=== PATIENT | female | born 1960 | race African-American/Black ===

== ENCOUNTER 2019-03-11 13:30 | Emergency (ER) | payer OTHER ==
--- OUTSIDE RECORDS SUMMARY | 2019-03-11 13:37 | XMS REPORT ---
:1960 [facility] [address] [place] [address] [place] [id number] Care Team Providers Name Role Phone Unavailable Unavailable Unavailable Problems This patient has no known problems. Allergies, Adverse Reactions, Alerts This patient has no known allergies or adverse reactions. Medications This patient has no known medications.
--- NOTE | 2019-03-11 15:06 | ER ---
Nurse's Notes [facility] Name: Katherin Bhakta Age: 58 yrs Sex: Female : 1960 Arrival Date: 03/11/2019 Time: 13:34 Bed 17 Private MD: Diagnosis: Low back pain;Muscle spasm of back Presentation: 03/11 13:49 Presenting complaint: Patient states: "I tripped and fell today and my back is aa5 hurting". pt c/o mid-low back pain. Care prior to arrival: None. Mechanism of Injury: Fall from standing position. Trauma event details: Injury occurred in the [facility], Injury occurred: March 11, 2019. 13:49 Acuity: RIDDHI 4 aa5 13:49 Method Of Arrival: Ambulatory aa5 13:59 Transition of care: patient was not received from another setting of care. Onset of tw2 symptoms was March 11, 2019. Risk Assessment: Do you want to hurt yourself or someone else? Patient reports no desire to harm self or others. Initial Sepsis Screen: Does the patient meet any 2 criteria? No. Patient's initial sepsis screen is negative. Does the patient have a suspected source of infection? No. Patient's initial sepsis screen is negative. Trauma Activation: Not Applicable Physician: ED Physician; Name: ; Notified At: ; Arrived At: Physician: General Surgeon; Name: ; Notified At: ; Arrived At: Physician: Radiology; Name: ; Notified At: ; Arrived At: Physician: Respiratory; Name: ; Notified At: ; Arrived At: Physician: Lab; Name: ; Notified At: ; Arrived At: Historical: - Allergies: 13:50 No Known Allergies; aa5 - PMHx: 13:50 Hypertension; aa5 - PSHx: 13:49 Appendectomy; aa5 - Immunization history:: Flu vaccine is not up to date. - Social history:: Smoking status: Patient uses tobacco products, smokes one-half pack cigarettes per day. - Ebola Screening: : No symptoms or risks identified at this time. Screenin:59 Abuse screen: Denies threats or abuse. Nutritional screening: No deficits noted. tw2 Tuberculosis screening: No symptoms or risk factors identified. Fall Risk None identified. Assessment: 14:00 General: Appears in no apparent distress. slender, well groomed, Behavior is calm, tw2 cooperative, appropriate for age. Pain: Complains of pain in lumbar area, left low back and right low back. Neuro: Level of Consciousness is awake, alert, obeys commands, Oriented to person, place, time, situation. Cardiovascular: Heart tones S1 S2 Patient's skin is warm and dry. Respiratory: Airway is patent Respiratory effort is even, unlabored, Respiratory pattern is regular, symmetrical, Breath sounds are clear bilaterally. GI: No signs and/or symptoms were reported involving the gastrointestinal system. : No signs and/or symptoms were reported regarding the genitourinary system. EENT: No signs and/or symptoms were reported regarding the EENT system. Derm: No signs and/or symptoms reported regarding the dermatologic system. Musculoskeletal: Circulation, motion, and sensation intact. Range of motion: intact in all extremities, Reports pain in lumbar area, left low back and right low back since "earlier today when i was moving mulch i tripped and fell from standing, im just real sore". 15:12 Reassessment: Patient appears in no apparent distress at this time. No changes from tw2 previously documented assessment. Patient and/or family updated on plan of care and expected duration. Pain level reassessed. Patient is alert, oriented x 3, equal unlabored respirations, skin warm/dry/pink. Vital Signs: 13:51 BP 116 / 75; Pulse 72; Resp 16 S; Temp 99.0(TE); Pulse Ox 100% on R/A; Weight 63.5 kg aa5 (R); Height 5 ft. 4 in. (162.56 cm) (R); Pain 9/10; 15:06 BP 124 / 67; Pulse 59; Resp 18; Temp 97.8(O); Pulse Ox 99% ; mh5 13:51 Body Mass Index 24.03 (63.50 kg, 162.56 cm) aa5 ED Course: 13:34 Patient arrived in ED. mr 13:49 Triage completed. aa5 13:50 Arm band placed on. aa5 13:52 Placed in gown. Bed in low position. Pulse ox on. NIBP on. tw2 13:58 Nichole Sinha RN is Primary Nurse. tw2 14:05 Naveed Jean PA is PHCP. jr8 14:05 Malinda Garcia MD is Attending Physician. jr8 14:51 XRAY Lumbar Spine (3 Views) In Process Unspecified. EDMS 14:51 X-ray completed. Patient tolerated procedure well. Patient moved to radiology via ml wheelchair. Patient moved back from radiology. 15:12 No provider procedures requiring assistance completed. Patient did not have IV access tw2 during this emergency room visit. Administered Medications: No medications were administered Outcome: 15:06 Discharge ordered by . jr8 15:12 Discharged to home ambulatory, with family. tw2 15:12 Condition: stable 15:12 Discharge instructions given to patient, family, Instructed on discharge instructions, follow up and referral plans. no drinking with medication, no driving heavy equipment, medication usage, Demonstrated understanding of instructions, follow-up care, medications, Prescriptions given X 3. 15:13 Patient left the ED. tw2 Signatures: Dispatcher [employer] [facility] PartidaBlessing Harinder, CrisTania Morales RN RN aa5 Naveed Jean PA PA jr8 Nichole Sinha RN RN tw2 Brittaney Orellana [facility]
--- NOTE | 2019-03-11 15:07 | EDPHYS ---
Physician Documentation [facility] Name: Katherin Bhakta Age: 58 yrs Sex: Female : 1960 Arrival Date: 03/11/2019 Time: 13:34 Bed 17 Private MD: ED Physician Malinda Garcia HPI: 03/11 14:52 This 58 yrs old Black Female presents to ER via Ambulatory with complaints of Fall jr8 Injury, Back Pain. 14:52 Details of fall: The patient fell from an upright position, while standing. Onset: The jr8 symptoms/episode began/occurred acutely, today. 14:52 Associated injuries: The patient sustained injury to the low back, pain. Severity of jr8 symptoms: At their worst the symptoms were moderate, in the emergency department the symptoms are unchanged. The patient has not experienced similar symptoms in the past. The patient has not recently seen a physician. Fell on back left side while doing yard work. Pain with decreased ROM since incident. Denies any other trauma . Historical: - Allergies: 13:50 No Known Allergies; aa5 - PMHx: 13:50 Hypertension; aa5 - PSHx: 13:49 Appendectomy; aa5 - Immunization history:: Flu vaccine is not up to date. - Social history:: Smoking status: Patient uses tobacco products, smokes one-half pack cigarettes per day. - Ebola Screening: : No symptoms or risks identified at this time. ROS: 14:52 Eyes: Negative for injury, pain, redness, and discharge, ENT: Negative for injury, jr8 pain, and discharge, Neck: Negative for injury, pain, and swelling, Cardiovascular: Negative for chest pain, palpitations, and edema, Respiratory: Negative for shortness of breath, cough, wheezing, and pleuritic chest pain, Abdomen/GI: Negative for abdominal pain, nausea, vomiting, diarrhea, and constipation, MS/Extremity: Negative for injury and deformity, Skin: Negative for injury, rash, and discoloration, Neuro: Negative for headache, weakness, numbness, tingling, and seizure. 14:52 Back: Positive for pain at rest, pain with movement, of the lumbar area, left low back and right low back. Exam: 14:52 Eyes: Pupils equal round and reactive to light, extra-ocular motions intact. Lids and jr8 lashes normal. Conjunctiva and sclera are non-icteric and not injected. Cornea within normal limits. Periorbital areas with no swelling, redness, or edema. ENT: Nares patent. No nasal discharge, no septal abnormalities noted. Tympanic membranes are normal and external auditory canals are clear. Oropharynx with no redness, swelling, or masses, exudates, or evidence of obstruction, uvula midline. Mucous membranes moist. Neck: Trachea midline, no thyromegaly or masses palpated, and no cervical lymphadenopathy. Supple, full range of motion without nuchal rigidity, or vertebral point tenderness. No Meningismus. Cardiovascular: Regular rate and rhythm with a normal S1 and S2. No gallops, murmurs, or rubs. Normal PMI, no JVD. No pulse deficits. Respiratory: Lungs have equal breath sounds bilaterally, clear to auscultation and percussion. No rales, rhonchi or wheezes noted. No increased work of breathing, no retractions or nasal flaring. Abdomen/GI: Soft, non-tender, with normal bowel sounds. No distension or tympany. No guarding or rebound. No evidence of tenderness throughout. Skin: Warm, dry with normal turgor. Normal color with no rashes, no lesions, and no evidence of cellulitis. MS/ Extremity: Pulses equal, no cyanosis. Neurovascular intact. Full, normal range of motion. Neuro: Awake and alert, GCS 15, oriented to person, place, time, and situation. Cranial nerves II-XII grossly intact. Motor strength 5/5 in all extremities. Sensory grossly intact. Cerebellar exam normal. Normal gait. 14:52 Back: pain, that is moderate, of the left low back and right low back, ROM is painful, with flexion, normal spinal alignment noted, CVA tenderness, is absent, vertebral tenderness, is not appreciated, muscle spasm, is appreciated in the left low back, left mid back, right mid back and right low back. Vital Signs: 13:51 BP 116 / 75; Pulse 72; Resp 16 S; Temp 99.0(TE); Pulse Ox 100% on R/A; Weight 63.5 kg aa5 (R); Height 5 ft. 4 in. (162.56 cm) (R); Pain 9/10; 15:06 BP 124 / 67; Pulse 59; Resp 18; Temp 97.8(O); Pulse Ox 99% ; mh5 13:51 Body Mass Index 24.03 (63.50 kg, 162.56 cm) aa5 MDM: 14:10 Patient medically screened. jr8 15:04 Data reviewed: vital signs, nurses notes, radiologic studies, plain films. Data jr8 interpreted: Pulse oximetry: on room air is 100 %. Interpretation: normal. Test interpretation: by ED physician or midlevel provider: plain radiologic studies, Wedge compression fracture of L1 noted. . Counseling: I had a detailed discussion with the patient and/or guardian regarding: the historical points, exam findings, and any diagnostic results supporting the discharge/admit diagnosis, radiology results, the need for outpatient follow up, a orthopedic surgeon, to return to the emergency department if symptoms worsen or persist or if there are any questions or concerns that arise at home. ED course: Discussed with patient that she has what appears to be an old wedge compression fracture of L1. No other acute findings noted. Based on mechanism of injury less likely to be new fracture. Recommend ortho spine f/u. If radiology says otherwise will call back. In the mean time will help with pain . 03/11 14:26 Order name: XRAY Lumbar Spine (3 Views) jr8 Administered Medications: No medications were administered Disposition: 15:15 Co-signature as Attending Physician, Malinda Garcia MD. ma2 Disposition: 03/11/19 15:06 Discharged to Home. Impression: Low back pain, Muscle spasm of back. - Condition is Stable. - Discharge Instructions: Back Pain, Adult, Muscle Cramps and Spasms, Musculoskeletal Pain, Back Exercises, [id number], Heat Therapy. - Prescriptions for Ibuprofen 800 mg Oral Tablet - take 1 tablet by ORAL route every 12 hours As needed take with food; 20 tablet. Zanaflex 4 mg Oral Tablet - take 1 tablet by ORAL route every 8 hours As needed; 20 tablet. Tramadol 50 mg Oral Tablet - take 1 tablet by ORAL route every 8 hours as needed; 12 tablet. - Medication Reconciliation Form, Thank You Letter, Antibiotic Education, Prescription Opioid Use form. - Follow up: Private Physician; When: 5 - 6 days; Reason: Recheck today's complaints, Continuance of care, Re-evaluation by your physician. - Problem is new. - Symptoms have improved. Signatures: Dispatcher [facility] Tania Collazo, RN RN aa5 Naveed Jean PA PA jr8 Nichole Sinha RN RN tw2 Malinda Garcia MD MD ma2 Corrections: (The following items were deleted from the chart) 14:53 14:52 Onset: The symptoms/episode began/occurred acutely, 2 day(s) ago, jr8 jr8 15:13 15:06 03/11/2019 15:06 Discharged to Home. Impression: Low back pain; Muscle spasm of tw2 back. Condition is Stable. Forms are Medication Reconciliation Form, Thank You Letter, Antibiotic Education, Prescription Opioid Use. Follow up: Private Physician; When: 5 - 6 days; Reason: Recheck today's complaints, Continuance of care, Re-evaluation by your physician. Problem is new. Symptoms have improved. jr8
--- NOTE | 2019-03-11 15:14 | RAD REPORT ---
EXAM DESCRIPTION: RAD - Lumbar Spine 3 Views - 03/11/2019 2:52 pm CLINICAL HISTORY: Back pain FINDINGS: The alignment of the lumbar spine is satisfactory. Mild compression fracture involves the L1 vertebral body which has developed since 2011 Osteoporosis 25 millimeter calcification within the pelvis may represent a calcified uterine fibroid. Follow-up x- ray in 3 months recommended to assess stability
[2019-03-11 15:18] VITALS: BP 124/67; TEMP 97.8; O2SAT 99
== END 2019-03-11 15:13 | disposition home or self-care (01) ==
LOC: ER 13:30
DX: M62.830 Muscle spasm of back (principal); W18.30XA Fall on same level, unspecified, initial encounter; Y93.89 Activity, other specified; Y92.9 Unspecified place or not applicable; I10 Essential (primary) hypertension; F17.210 Nicotine dependence, cigarettes, uncomplicated
CPT/HCPCS: 72100

== ENCOUNTER 2020-01-17 19:44 | Emergency (ER) | payer OTHER ==
--- OUTSIDE RECORDS SUMMARY | 2020-01-17 19:47 | XMS REPORT | Summary of Care ---
:1960 Author Organization [facility] - [facility] Address [address] [place] [id number] Care Team Providers Name Role Phone Lukas Newell MD Primary Care Provider Reason for Referral (Routine) Status Reason Specialty Diagnoses / Referred By Referred To Procedures Contact Contact New Request Cardiology Diagnoses Essential hypertension Elevated troponin Lukas Newell Procedures CONSULT/REFERRAL CARDIOLOGY MD Joanna [address] [place] [address] [place] [address] (Routine) Status Reason Specialty Diagnoses / Referred By Referred To Procedures Contact Contact New Request Surgery Diagnoses Encounter for colorectal cancer screening Lukas Newell Procedures CONSULT/REFERRAL GENERAL SURGERY MD Joanna [address] [place] [address] [place] [address] (Routine) Status Reason Specialty Diagnoses / Referred By Referred To Procedures Contact Contact New Request Obstetrics & Diagnoses Referral of patient Reece Gynecology Procedures CONSULT/REFERRAL LEAD WEB DEVELOPER Lukas Marshall MD [address] [place] [address] [place] [address] Reason for Visit Reason Comments Follow-up LAB WORK Encounter Details Date Type Department Care Team Description 12/03/2019 Office Visit [facility] Family Lukas Newell Essential hypertension (Primary Dx); Medicine - Noemi Marshall MD Hypercholesterolemia; [address] [place] [address] Prediabetes; [place], [place] Vitamin D deficiency; [id number] Encounter for long-term (current) use of medications; [phone] Referral of patient; Elevated troponin; Encounter for colorectal cancer screening; Chronic constipation; Atopic dermatitis, unspecified type Allergies No Known Allergiesdocumented as of this encounter (statuses as of 12/03/2019) Medications Medication Sig Dispensed Refills Start End Status Date Date aspirin 81 mg chewable Take 1 tablet 30 tablet 11 Active tabletIndications: by mouth 9 Diarrhea, unspecified daily. type pravastatin 10 mg Take 1 tablet 30 tablet 11 Active tabletIndications: by mouth at 9 Hyperlipidemia, bedtime. unspecified hyperlipidemia type ergocalciferol, Take 1 capsule 4 capsule 2 Active vitamin d2, 50,000 by mouth 9 unit weekly. Take capsuleIndications: for 12 weeks Vitamin D deficiency then start OTC vitamin D3 2000 units daily Polyethylene Glycol Take 1 Packet 30 Packet 5 Active 3350 17 gram by mouth 0 powderIndications: daily. Chronic constipation losartan 25 mg Take 1 tablet 30 tablet 5 Active tabletIndications: by mouth 0 Essential hypertension daily. TURMERIC ORAL Take by 0 Active mouth. GARLIC ORAL Take by 0 Active mouth. BEATRICE ROOT, BULK, 0 Active MISC triamcinolone Apply to 80 g 2 Active acetonide 0.1 % area(s) 2 0 creamIndications: (two) times Atopic dermatitis, daily. unspecified type tiZANidine 4 mg tablet Take 4 mg by 0 Discontinued mouth every 8 020 (Therapy (eight) hours completed) as needed. traMADOL 50 mg tablet Take 50 mg by 0 Discontinued mouth every 8 020 (Therapy (eight) hours completed) as needed. amLODIPine 5 mg Take 1 tablet 30 tablet 5 Discontinued tabletIndications: by mouth 9 020 (Side effects) Essential hypertension daily. methylPREDNISolone 4 Follow package 21 Each 0 Discontinued mg tabletsIndications: directions 9 020 (Therapy Chronic gout of completed) multiple sites, unspecified cause allopurinol 100 mg Take 1 tablet 30 tablet 5 Discontinued tabletIndications: by mouth 9 020 (Patient Chronic gout of daily. Preference) multiple sites, unspecified cause documented as of this encounter (statuses as of 12/03/2019) Active Problems Problem Noted Date Chronic constipation 12/03/2019 Atopic dermatitis, unspecified type 12/03/2019 Chronic gout of multiple sites 05/08/2019 Prediabetes 03/25/2019 Type 2 myocardial infarction 03/16/2019 Tobacco use 03/16/2019 Troponin level elevated 03/01/2019 Essential hypertension 03/01/2019 Hyperlipidemia Vitamin D deficiency Anemia documented as of this encounter (statuses as of 12/03/2019) Resolved Problems Problem Noted Date Resolved Date GUILLERMINA (acute kidney injury) 03/01/2019 03/25/2019 Thrombocytopenia 03/01/2019 03/25/2019 Diarrhea 02/26/2019 03/16/2019 Chronic kidney disease 03/25/2019 documented as of this encounter (statuses as of 12/03/2019) Social History Tobacco Use Types Packs/Day Years Used Date Current Every Day Smoker Cigarettes Smokeless Tobacco: Never Used Alcohol Use Drinks/Week oz/Week Comments No Sex Assigned at Date Recorded Not on file Job Start Date Occupation Industry Not on file Not on file Not on file Travel History Travel Start Travel End No recent travel history available. documented as of this encounter Last Filed Vital Signs Vital Sign Reading Time Taken Comments Blood Pressure 128/72 12/03/2019 8:44 AM GAS FITTER HELPER Pulse 88 12/03/2019 8:44 AM GAS FITTER HELPER Temperature 36.2 C (97.1 F) 12/03/2019 8:44 AM GAS FITTER HELPER Respiratory Rate - - Oxygen Saturation - - Inhaled Oxygen Concentration - - Weight 59.4 kg (131 lb) 12/03/2019 8:44 AM GAS FITTER HELPER Height 162.6 cm (5' 4") 12/03/2019 8:44 AM GAS FITTER HELPER Body Mass Index 22.49 12/03/2019 8:44 AM GAS FITTER HELPER documented in this encounter Patient Instructions Patient InstructionsCoLukas east MD - 12/03/2019 8:30 AM GAS FITTER HELPER Controlling High Blood Pressure High blood pressure (hypertension) is often called the silent killer. This is because many people who have it, dont know it. It can be very dangerous High blood pressure can raise your risk of heartattack, stroke, heart disease, and heart failure. Controlling your blood pressure can decrease your risk of these problems. It's important to know the appropriate blood pressure range and remember to check your blood pressure regularly. Doing so can save your life. Blood pressure measurements are given as 2 numbers. Systolic blood pressure is the upper number. This is the pressure when the heart contracts. Diastolic blood pressure is the lower number. This is thepressure when the heart relaxes between beats. Blood pressure is categorized as normal, elevated, or stage 1 or stage 2 high blood pressure: Normal blood pressure is systolic of less than 120 and diastolic of less than 80 (120/80) Elevated blood pressure is systolic of 120 to 129 and diastolic less than 80 Stage 1 high blood pressure is systolic is 130 to 139 or diastolic between 80 to 89 Stage 2 high blood pressure is when systolic is 140 or higher or the diastolic is 90 or higher A heart-healthy lifestyle can help you control your blood pressure without medicines. Here are some things you can do to pursue a heart-healthy lifestyle: Choose heart-healthy foods Select low-salt, low-fat foods. Limit sodium intake to 2,400 mg per day or the amount suggested by your healthcare provider. Limit canned, dried, cured, packaged, and fast foods. These can contain a lot of salt. Eat 8 to 10 servings of fruits and vegetables every day. Choose lean meats, fish, or chicken. Eat whole-grain pasta, brown rice, and beans. Eat 2 to 3 servings of low-fat or fat-free dairy products. Ask your doctor about the DASH eating plan. This plan helps reduce blood pressure. When you go to a restaurant, ask that your meal be prepared with no added salt. Stay at a healthy weight Ask your healthcare provider how many calories to eat a day. Then stick to that number. Ask your healthcare provider what weight range is healthiest for you. If you are overweight, a weight loss of only 3% to 5% of your body weightcan help lower blood pressure. Generally, a good weight loss goal is to lose 10% of your body weight in a year. Limit snacks and sweets. Get regular exercise. Get up and get active Find activities you enjoy that can be done alone or with friends or family. Such activities mightinclude bicycling, dancing, walking, or jogging. Park farther away from building entrances to walk more. Use stairs instead of the elevator. When you can, walk or bike instead of driving. [place] leaves, garden, or do household repairs. Be active at a moderate to vigorous level of physical activity for at least 40 minutes for a minimum of 3 to 4 days a week. Manage stress Make time to relax and enjoy life. Find time to laugh. Communicate your concerns with your loved ones and your healthcare provider. Visit with family and friends, and keep up with hobbies. Limit alcohol and quit smoking Men should have no more than 2 drinks per day. Women should have no more than 1 drink per day. Talk with your healthcare provider about quitting smoking. Smoking significantly increases your risk for heart disease and stroke. Ask your healthcare provider about community smoking cessation programs and other options. Medicines If lifestyle changes arent enough, your healthcare provider may prescribe high blood pressure medicine. Take all medicines as prescribed. If you have any questions about your medicines, ask your healthcare provider before stopping or changing them. [employer] last reviewed this educational content on 04/11/201919991337-4080 [employer]. [address] [place] [address]. All rights reserved. This information is not intended as a substitute for professional medical care. Always follow your healthcare professional's instructions. FITTER HELPER documented in this encounter Progress Notes Genet Jameson - 12/03/2019 8:30 AM CST Venipuncture collection performed by clean technique on the left anticubitus. Total of 1 attempts were made. Slight pressure and a bandage/dressing were applied to the site(s). The patient experienced no complications. The following specimens were processed according to instructions and sent to [facility] laboratories per lab order on 12/03/19: LT BLUE SST RED LAV PPT DK GREEN (LiHep) DK GREEN (SodH) ELLIOTT DK BLUE (K2) DK BLUE (S) ACD Blood Culture NIPT/NTD oLukas east MD - 12/03/2019 8:30 AM CST Cc: Chief Complaint Patient presents with [id number], HLD, and prediabetes HPI Katherin Bhakta is a 59 year old female who presents for f/u of HTN, HLD, and prediabetes. She also c/o chronic constipation and rash. Constipation Severity: Moderate Time since last bowel movement: 1 week Timing: Constant Progression: Worsening Chronicity: Chronic Context: not dietary changes Stool description: Hard Relieved by: Nothing Ineffective treatments: Diet changes Associated symptoms: no abdominal pain, no anorexia, no diarrhea, no flatus, no hematochezia, no nausea and no vomiting Rash Location: Leg Leg rash location: L leg and R leg Quality: dryness and scaling Severity: Mild Onset quality: Gradual Duration: several weeks. Timing: Intermittent Progression: Waxing and waning Chronicity: Chronic Relieved by: Nothing Ineffective treatments: Moisturizers Associated symptoms: joint pain Associated symptoms: no abdominal pain, no diarrhea, no nausea and not vomiting HTN, HLD follow-up Medication compliance: Good but she says amlodipine makes her dizzy--she requests a different bp medication. Denies adverse medication side effects. Dietary compliance: Good. Exercise frequency: None. Blood pressure readings: Doesn't self-monitor. Associated symptoms: Dizziness as noted above. Denies cp, SOB, palpitations, edema, orthopnea, PND, syncope, claudication, headaches, visual changes, or focal weakness. Cardiovascular screening (ex. EKG, stress test) in the past 3 years?: Yes. She is overdue for her 6mo f/u with her Mold Cutting Machine Operator Dr. Tinsley (due to h/o elevated troponin/Type 2 CO) and requests referral back to him. Prediabetes follow-up Last Two A1C Results ([facility]/LC, POCT, [facility]) Recent Labs 03/17/19 0911 HGBA1C 5.7 On metformin?: No. Dietary compliance: Good except she admits to 2 sodas per day. Exercise frequency: None. Associated symptoms: None. Denies polyuria, polydipsia, blurred vision, or numbness/tingling of extremities. Allergies Katherin has No Known Allergies. Medications Outpatient Medications Prior to Visit Medication Sig Dispense Refill amLODIPine 5 mg tablet Take 1 tablet by mouth daily. 30 tablet 5 allopurinol 100 mg tablet Take 1 tablet by mouth daily. 30 tablet 5 methylPREDNISolone 4 mg tablets Follow package directions 21 Each 0 ergocalciferol, vitamin d2, 50,000 unit capsule Take 1 capsule by mouth weekly. Take for 12 weeks then start OTC vitamin D3 2000 units daily 4 capsule 2 pravastatin 10 mg tablet Take 1 tablet by mouth at bedtime. 30 tablet 11 tiZANidine 4 mg tablet Take 4 mg by mouth every 8 (eight) hours as needed. traMADOL 50 mg tablet Take 50 mg by mouth every 8 (eight) hours as needed. aspirin 81 mg chewable tablet Take 1 tablet by mouth daily. 30 tablet 11 No facility-administered medications prior to visit. Histories Past Medical History: Diagnosis Date GUILLERMINA (acute kidney injury) Anemia Chronic gout of multiple sites 05/08/2019 Hyperlipidemia Hypertension Prediabetes 03/25/2019 Thrombocytopenia 03/01/2019 Tobacco use 03/16/2019 Vitamin D deficiency Past Surgical History: Procedure Laterality Date APPENDECTOMY ECTOPIC REMOVAL ENDOMETRIAL ABLATION Social History Socioeconomic History Marital status: Spouse name: Not on file Number of children: Not on file Years of education: Not on file Highest education level: Not on file Occupational History Not on file Social Needs Financial resource strain: Not on file Food insecurity: Worry: Not on file Inability: Not on file Transportation needs: Medical: Not on file Non-medical: Not on file Tobacco Use Smoking status: Current Every Day Smoker Types: Cigarettes Smokeless tobacco: Never Used Substance and Sexual Activity Alcohol use: No Drug use: No Sexual activity: Not on file Lifestyle Physical activity: Days per week: Not on file Minutes per session: Not on file Stress: Not on file Relationships Social connections: Talks on phone: Not on file Gets together: Not on file Attends caodaism service: Not on file Active member of club or organization: Not on file Attends meetings of clubs or organizations: Not on file Relationship status: Not on file Intimate partner violence: Fear of current or ex partner: Not on file Emotionally abused: Not on file Physically abused: Not on file Forced sexual activity: Not on file Other Topics Concern Not on file Social History Narrative . She is a homemaker. Family History Problem Relation Age of Onset Heart Mother Coronary Heart Disease Mother Alcohol/Drug Father alcoholism Review of Systems Constitutional: Negative. HENT: Negative. Eyes: Negative. Respiratory: Negative. Cardiovascular: Negative. Gastrointestinal: Positive for constipation. Negative for abdominal pain, anorexia, diarrhea, flatus, hematochezia, nausea and vomiting. Genitourinary: Negative. Musculoskeletal: Positive for arthralgias. Skin: Positive for rash. Neurological: Negative. Psychiatric/Behavioral: Negative. Endocrine: Endocrine negative Vital Signs BP 128/72 | Pulse 88 | Temp 36.2 C (97.1 F) (Tympanic) | Ht 5' 4" (1.626 m) | Wt 131 lb (59.4 kg) | BMI 22.49 kg/m Physical Exam Constitutional: She is oriented to person, place, and time. She appears well- developed and well-nourished. No distress. HENT: Head: Normocephalic. Mouth/Throat: Mucous membranes are normal. Eyes: Pupils are equal, round, and reactive to light. Conjunctivae are normal. No scleral icterus. Neck: Neck supple. No thyromegaly present. Cardiovascular: Normal rate, regular rhythm, normal heart sounds and intact distal pulses. Exam reveals no gallop and no friction rub. No murmur heard. Pulmonary/Chest: Effort normal and breath sounds normal. She has no wheezes. She has no rales. Abdominal: Soft. Bowel sounds are normal. She exhibits no distension and no mass. There is no tenderness. Musculoskeletal: She exhibits no edema. Lymphadenopathy: She has no cervical adenopathy. Neurological: She is alert and oriented to person, place, and time. Skin: Skin is warm and dry. Rash (large plaques of scaly slightly hyperpigmented skin on b/l legs) noted. No pallor. Psychiatric: She has a normal mood and affect. Her behavior is normal. Nursing note and vitals reviewed. LABS: CBC CMP WBC (10*3/L) Date Value 04/17/2019 4.39 NA (mmol/L) Date Value 03/17/2019 144 RBC (10*6/L) Date Value 04/17/2019 3.94 K (mmol/L) Date Value 03/17/2019 4.3 PLT (10*3/L) Date Value 04/17/2019 215 CALCIUM (mg/dL) Date Value 03/17/2019 9.1 HGB (g/dL) Date Value 04/17/2019 12.0 CL (mmol/L) Date Value 03/17/2019 110 (H) HCT (%) Date Value 04/17/2019 37.3 BUN (mg/dL) Date Value 03/17/2019 12 LIPID PANEL CREATININE (mg/dL) Date Value 03/17/2019 1.00 CHOL (mg/dL) Date Value 03/17/2019 98 (L) GLUCOSE (mg/dL) Date Value 03/17/2019 88 LDL CHOL (mg/dL) Date Value 03/17/2019 53 CO2 TOTAL (mmol/L) Date Value 03/17/2019 26 HDL (mg/dL) Date Value 03/17/2019 26 (L) ALBUMIN Date Value Ref Range Status 03/17/2019 3.7 3.5 - 5.0 g/dL Final TRIG (mg/dL) Date Value 03/17/2019 95 T PROTEIN Date Value Ref Range Status 03/17/2019 6.5 6.3 - 8.2 g/dL Final TSH TOTAL BILI Date Value Ref Range Status 03/17/2019 0.4 0.1 - 1.1 mg/dL Final TSH (mIU/L) Date Value 02/27/2019 1.19 No components found for: BILIUNCOM BILI CONJ Date Value Ref Range Status 02/27/2019 0.0 0.0 - 0.3 mg/dL Final ALT(SGPT) Date Value Ref Range Status 03/17/2019 21 9 - 51 U/L Final AST(SGOT) Date Value Ref Range Status 03/17/2019 25 13 - 40 U/L Final ALK PHOS Date Value Ref Range Status 03/17/2019 74 34 - 122 U/L Final Assessment/Plan Diagnoses and all orders for this visit: Essential hypertension Bp is at goal but she isn't tolerating amlodipine well. D/c amlodipine and start losartan as noted. Low sodium diet/DASH diet. Exercise per Mold Cutting Machine Operator' s recommendations. The patient was instructed to self monitor her blood pressure once daily varying the times when it is checked and to bring therecord of readings to each office visit. The patient should follow-up sooner if the blood pressure is trending >/=130/80. - CONSULT/REFERRAL CARDIOLOGY - losartan 25 mg tablet; Take 1 tablet by mouth daily. - COMP. METABOLIC PANEL (34547) Hypercholesterolemia Continue current lipid-lowering pharmacotherapy. Low fat, low cholesterol diet was recommended/reviewed. Exercise per Mold Cutting Machine Operator's recommendations. - COMP. METABOLIC PANEL (22130) - LIPID PANEL (92386)(TOTAL CHOLESTEROL, TRIGLYCERIDES, HDL) Prediabetes Carb-controlled diet. Exercise regularly and work on weight loss. Consider self glucose monitoring. Consider metformin to help prevent progression to overt diabetes. - COMP. METABOLIC PANEL (94585) - GLYCOSYLATED HEMOGLOBIN (A1C) Vitamin D deficiency Continue vit D supplementation. Will reassess the patient's vitamin D and calcium level. - COMP. METABOLIC PANEL (97387) - VITAMIN D, 25-OH Encounter for long-term (current) use of medications - COMP. METABOLIC PANEL (10645) - LIPID PANEL (49565)(TOTAL CHOLESTEROL, TRIGLYCERIDES, HDL) - GLYCOSYLATED HEMOGLOBIN (A1C) History of elevated troponin/Type 2 CO - CONSULT/REFERRAL CARDIOLOGY Chronic constipation Discussed the patient's treatment options for constipation. We decided upon a trial of pharmacotherapy as noted. A high fiber diet, increased water intake, and use of a daily probiotic were recommended. Thyroid function testing is UTD. The patient is not UTD with screening colonoscopy so she has been referred as noted above. - Polyethylene Glycol 3350 17 gram powder; Take 1 Packet by mouth daily. Encounter for colorectal cancer screening Referral for screening colonoscopy. - CONSULT/REFERRAL GENERAL SURGERY Atopic dermatitis, unspecified type Topical steroid as noted. Discussed routine skin care for atopic dermatitis. Recommended the Eucerin line of products for maintenance. - triamcinolone acetonide 0.1 % cream; Apply to area(s) 2 (two) times daily. Referral of patient Referral for routine gynecologic exam and mammography. I explained to the patient that I prefer formy patients to see a department director for their pelvic exam /social staff worker evaluation given I perform this service so rarely. I feel a department director is more adept at recognizing pathology on exam and I want my patients to benefit from that expertise. - CONSULT/REFERRAL LEAD WEB DEVELOPER Plan of care, desired health behaviors, goals, Ddx, and any prescribed medications were discussed with the patient. This visit did not involve counseling and coordination that comprised more than 50% of the visit time. Education resources and self-management tools were provided and reviewed with the AVS. Patient/guardian/family verbalized understanding and agrees to the plan of care. Barriers tocare: None. Ability to manage care: Good. Advanced care planning (living will) information was not given/offered to the patient to review for discussion at a future visit. If applicable, the [facility] database was accessed to review any controlled substance prescription claims data. If the patient is taking prescribed medications, the [employer] prescription claims data in [employer] was reviewed to assess patient compliance with the medication treatment plan. Follow-up: Return in about 1 month (around 01/03/2020) for blood pressure follow -up. Follow-up sooner if any problems or concerns. documented in this encounter Plan of Treatment Date Type Specialty Care Team Description 01/04/2020 Office Visit Family Medicine Lukas Newell MD [address] [place] [address] [place] [id number] Name Type Priority Associated Diagnoses Order Schedule COMP. METABOLIC PANEL LAB Routine Essential hypertension 1 Occurrences starting (02943) Hypercholesterolemia 12/03/2019 until Prediabetes 02/01/2020 Encounter for long-term (current) use of medications Vitamin D deficiency LIPID PANEL (85570)(TOTAL LAB Routine Hypercholesterolemia 1 Occurrences starting CHOLESTEROL, Encounter for long-term 12/03/2019 until TRIGLYCERIDES, HDL) (current) use of 02/01/2020 medications GLYCOSYLATED HEMOGLOBIN LAB Routine Prediabetes 1 Occurrences starting (A1C) Encounter for long-term 12/03/2019 until (current) use of 02/01/2020 medications VITAMIN D, 25-OH LAB Routine Vitamin D deficiency 1 Occurrences starting 12/03/2019 until 02/01/2020 Health Maintenance Due Date Last Done Comments PAP SMEAR 1979 LUNG CANCER SCREEN: Recommended 2013 for age 55-80 with 30 + pack year history Breast Cancer Screening 04/30/2020 Postponed from 1998 (MAMMOGRAM) (Refused) COLONOSCOPY 04/30/2020 Postponed from 2008 (Refused) DTaP,Tdap,and Td Vaccines (1 - 04/30/2020 Postponed from 1969 Tdap) (Refused) Zoster Recombinant Vaccine 04/30/2020 Postponed from 2008 (SHINGRIX) (1 of 2) (Refused) INFLUENZA VACCINE (#1) 2020 Postponed from 07/12/2019 (Refused) PNEUMOCOCCAL 0-64 YEARS COMBINED 12/03/2020 Postponed from 1964 SERIES (1 of 1 - PPSV23) (Refused) HEPATITIS C (HCV) SCREEN Completed 03/17/2019 documented as of this encounter Goals Goal Patient Goal Associated Recent Patient-Stated? Author Type Problems Progress Quit using Tobacco Use No [place], tobacco [place] A, (cigarettes, MD smokeless, etc) documented as of this encounter Results Not on filedocumented in this encounter Visit Diagnoses Diagnosis Essential hypertension - Primary Unspecified essential hypertension Hypercholesterolemia Pure hypercholesterolemia Prediabetes Other abnormal glucose Vitamin D deficiency Unspecified vitamin D deficiency Encounter for long-term (current) use of medications Encounter for long-term (current) use of other medications Referral of patient Referral of patient without examination or treatment Elevated troponin Other abnormal blood chemistry Encounter for colorectal cancer screening Special screening for malignant neoplasms, colon Chronic constipation Unspecified constipation Atopic dermatitis, unspecified type documented in this encounter Insurance Payer Benefit Plan / Subscriber ID Effective Phone Address Type Group Dates [facility] [id number] 2019-Franci [phone] [address] [place] [id number] [place] [address] documented as of this encounter
--- OUTSIDE RECORDS SUMMARY | 2020-01-17 19:47 | XMS REPORT | Summary of Care ---
:1960 Author Organization [facility] Address [address] [place] [address] Care Team Providers Name Role Phone Lukas Newell MD Primary Care Provider Reason for Visit Reason Comments Talk To Provider Encounter Details Date Type Department Care Team Description 06/26/2019 Telephone [facility] Family Lukas Newell, Talk To Provider Medicine - Noemi BOLANOS [address] [place] [address] [place] [address] [place] [address] [place] [phone] [address] Allergies No Known Allergiesdocumented as of this encounter (statuses as of 07/02/2019) Medications Medication Sig Dispensed Refills Start Date End Date Status aspirin 81 mg chewable Take 1 tablet by 30 tablet 11 03/03/2019 Active tabletIndications: mouth daily. Diarrhea, unspecified type tiZANidine 4 mg tablet Take 4 mg by 0 Active mouth every 8 (eight) hours as needed. traMADOL 50 mg tablet Take 50 mg by 0 Active mouth every 8 (eight) hours as needed. pravastatin 10 mg Take 1 tablet by 30 tablet 11 03/24/2019 Active tabletIndications: mouth at Hyperlipidemia, bedtime. unspecified hyperlipidemia type ergocalciferol, vitamin Take 1 capsule 4 capsule 2 03/25/2019 Active d2, 50,000 unit by mouth weekly. capsuleIndications: Take for 12 Vitamin D deficiency weeks then start OTC vitamin D3 2000 units daily amLODIPine 5 mg Take 1 tablet by 30 tablet 5 04/30/2019 Active tabletIndications: mouth daily. Essential hypertension methylPREDNISolone 4 mg Follow package 21 Each 0 05/08/2019 Active tabletsIndications: directions Chronic gout of multiple sites, unspecified cause allopurinol 100 mg Take 1 tablet by 30 tablet 5 05/08/2019 Active tabletIndications: mouth daily. Chronic gout of multiple sites, unspecified cause documented as of this encounter (statuses as of 07/02/2019) Active Problems Problem Noted Date Chronic gout of multiple sites 05/08/2019 Prediabetes 03/25/2019 Type 2 myocardial infarction 03/16/2019 Tobacco use 03/16/2019 Troponin level elevated 03/01/2019 Essential hypertension 03/01/2019 Hyperlipidemia Vitamin D deficiency Anemia documented as of this encounter (statuses as of 07/02/2019) Resolved Problems Problem Noted Date Resolved Date GUILLERMINA (acute kidney injury) 03/01/2019 03/25/2019 Thrombocytopenia 03/01/2019 03/25/2019 Diarrhea 02/26/2019 03/16/2019 Chronic kidney disease 03/25/2019 documented as of this encounter (statuses as of 07/02/2019) Social History Tobacco Use Types Packs/Day Years [...] of this encounter Last Filed Vital Signs Not on filedocumented in this encounter Plan of Treatment Date Type Specialty Care Team Description 08/31/2019 Office Visit Family Medicine Lukas Newell MD [address] [place] [address] [place] [address] 09/15/2019 Office Visit Family Medicine Lukas Newell MD [address] [place] [address] [place] [address] 09/28/2019 Office Visit Cardiology Deandra Tinsley MD [address] [place] [address] [address] [place], [place] [id number] 09/30/2019 Appointment Radiology Pan, WALLACE Perez [id number] [place] [address] [phone] 09/30/2019 Appointment Radiology Lukas Newell MD [address] [place] [address] DR [place], KATHY [address] 10/01/2019 Office Visit Family Medicine Lukas Newell MD [address] [place] [address] [place] [address] Health Maintenance Due Date Last Done Comments PNEUMOCOCCAL 0-64 YEARS COMBINED 1964 SERIES (1 of 1 - PPSV23) PAP SMEAR 1979 LUNG CANCER SCREEN: Recommended 2013 for age 55-80 with 30 + pack year history INFLUENZA VACCINE (#1) 2019 COLONOSCOPY 04/30/2020 Postponed from 2008 (Patient Refused) DTaP,Tdap,and Td Vaccines (1 - 04/30/2020 Postponed from 1977 Tdap) (Patient Refused) MAMMOGRAM 04/30/2020 Postponed from 1998 (Patient Refused) Zoster Recombinant Vaccine 04/30/2020 Postponed from 2008 (SHINGRIX) (1 of 2) (Patient Refused) HEPATITIS C (HCV) SCREEN Completed 03/17/2019 documented as of this encounter Goals Goal Patient Goal Associated Recent Patient-Stated? Author Type Problems Progress Quit using Tobacco Use Carol Newell tobacco Lukas Marshall, (cigarettes, smokeless, etc) documented as of this encounter Results Not on filedocumented in this encounter
--- OUTSIDE RECORDS SUMMARY | 2020-01-17 19:47 | XMS REPORT ---
:1960 [facility] Address [address] Cole [address] [place] [address] Care Team Providers Name Role Phone Unavailable Unavailable Unavailable Problems This patient has no known problems. Allergies, Adverse Reactions, Alerts This patient has no known allergies or adverse reactions. Medications This patient has no known medications.
--- OUTSIDE RECORDS SUMMARY | 2020-01-17 19:48 | XMS REPORT | Summary of Care ---
:1960 Author Organization [facility] Address [address] [place] [address] Care Team Providers Name Role Phone Lukas Newell MD Primary Care Provider Encounter Details Date Type Department Care Team Description 12/03/2019 Orders Only [facility] Doctor Unassigned, No [address] [facility] [place] [address] [address] [place] [address] Allergies No Known Allergiesdocumented as of this encounter (statuses as of 12/09/2019) Medications Medication Sig Dispensed Refills Start Date End Date Status aspirin 81 mg chewable Take 1 tablet by 30 tablet 11 03/03/2019 Active tabletIndications: mouth daily. Diarrhea, unspecified type pravastatin 10 mg Take 1 tablet by 30 tablet 11 03/24/2019 Active tabletIndications: mouth at Hyperlipidemia, bedtime. unspecified hyperlipidemia type ergocalciferol, vitamin Take 1 capsule 4 capsule 2 03/25/2019 Active d2, 50,000 unit by mouth weekly. capsuleIndications: Take for 12 Vitamin D deficiency weeks then start OTC vitamin D3 2000 units daily Polyethylene Glycol 3350 Take 1 Packet by 30 Packet 5 12/03/2019 Active 17 gram mouth daily. powderIndications: Chronic constipation losartan 25 mg Take 1 tablet by 30 tablet 5 12/03/2019 Active tabletIndications: mouth daily. Essential hypertension TURMERIC ORAL Take by mouth. 0 Active GARLIC ORAL Take by mouth. 0 Active BEATRICE ROOT, BULK, MISC 0 Active triamcinolone acetonide Apply to 80 g 2 12/03/2019 Active 0.1 % creamIndications: area(s) 2 (two) Atopic dermatitis, times daily. unspecified type documented as of this encounter (statuses as of 12/09/2019) Active Problems Problem Noted Date Chronic constipation 12/03/2019 Atopic dermatitis, unspecified type 12/03/2019 Chronic gout of multiple sites 05/08/2019 Prediabetes 03/25/2019 Type 2 myocardial infarction 03/16/2019 Tobacco use 03/16/2019 Troponin level elevated 03/01/2019 Essential hypertension 03/01/2019 Hyperlipidemia Vitamin D deficiency Anemia documented as of this encounter (statuses as of 12/09/2019) Resolved Problems Problem Noted Date Resolved Date GUILLERMINA (acute kidney injury) 03/01/2019 03/25/2019 Thrombocytopenia 03/01/2019 03/25/2019 Diarrhea 02/26/2019 03/16/2019 Chronic kidney disease 03/25/2019 documented as of this encounter (statuses as of 12/09/2019) Social History Tobacco Use Types Packs/Day Years [...] Office Visit Family Medicine Lukas Newell MD [address] [place] [address] [place] [phone] Health Maintenance Due Date Last Done Comments [...] Problems Progress Quit using Tobacco Use No Reece, tobacco Wondiful A, (cigarettes, MD smokeless, etc) documented as of this encounter Procedures Procedure Name Priority Date/Time Associated Diagnosis Comments IMMTRAC2 CONSENT Routine 12/03/2019 12:01 AM FLOOR SANDER documented in this encounter Results Not on filedocumented in this encounter Insurance Payer Benefit Plan / Subscriber ID Effective Phone Address Type Group Dates [facility] [id number] 2019-Franci [phone] [address] [facility] [id number] [place] [address] documented as of this encounter
--- OUTSIDE RECORDS SUMMARY | 2020-01-17 19:48 | XMS REPORT | Summary of Care ---
:1960 Author Organization [facility] Address [address] [place] [address] Care Team Providers Name Role Phone Lukas Newell MD Primary Care Provider Reason for Referral (Routine) Status Reason Specialty Diagnoses / Referred By Referred To Procedures Contact Contact New Request Cardiology Diagnoses Essential hypertension Elevated troponin Lukas Newell Procedures CONSULT/REFERRAL CARDIOLOGY MD Joanna [address] [place] [address] [place] [address] (Routine) Status Reason Specialty Diagnoses / Referred By Referred To Procedures Contact Contact New Request Surgery Diagnoses Encounter for colorectal cancer screening Lukas Newell Procedures CONSULT/REFERRAL GENERAL SURGERY MD Joanna [address] [place] [address] [place] [address] (Routine) Status Reason Specialty Diagnoses / Referred By Referred To Procedures Contact Contact New Request Obstetrics & Diagnoses Referral of patient Reece Gynecology Procedures 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 Lukas Marshall MD [address] [place] [address] [place] [address] Reason for Visit Reason Comments Follow-up LAB WORK Encounter Details Date Type Department Care Team Description 12/03/2019 Office Visit [facility] Family Lukas Newell Essential hypertension (Primary Dx); Medicine - Noemi Marshall MD Hypercholesterolemia; [address] [place] [address] Prediabetes; [place], [place] Vitamin D deficiency; [phone] Encounter for long-term (current) use of medications; [phone] Referral of patient; Elevated troponin; Encounter for [...] Comments Blood Pressure 128/72 12/03/2019 8:44 AM BANKRUPTCY ATTORNEY Pulse 88 12/03/2019 8:44 AM BANKRUPTCY ATTORNEY Temperature 36.2 C (97.1 F) 12/03/2019 8:44 AM BANKRUPTCY ATTORNEY Respiratory Rate - - Oxygen Saturation - - Inhaled Oxygen Concentration - - Weight 59.4 kg (131 lb) 12/03/2019 8:44 AM BANKRUPTCY ATTORNEY Height 162.6 cm (5' 4") 12/03/2019 8:44 AM BANKRUPTCY ATTORNEY Body Mass Index 22.49 12/03/2019 8:44 AM BANKRUPTCY ATTORNEY documented in this encounter Patient Instructions Patient InstructionsCoLukas east MD - 12/03/2019 8:30 AM BANKRUPTCY ATTORNEY Controlling High Blood Pressure High blood pressure [...] can, walk or bike instead of driving. [place] leaves, garden, or do household repairs. Be [...] healthcare provider before stopping or changing them. [employer] last reviewed this educational content on 04/11/201919995473-5690 [employer]. [address] [place] [address]. All rights reserved. This information is not intended as a substitute for professional medical care. Always follow your healthcare professional's instructions. RUPTCY ATTORNEY documented in this encounter Progress Notes Genet Jameson - 12/03/2019 8:30 AM CST Venipuncture collection performed by clean technique on the left anticubitus. Total of 1 attempts were made. Slight pressure and a bandage/dressing were applied to the site(s). The patient experienced no complications. The following specimens were processed according to instructions and sent to [facility] laboratories per lab order on 12/03/19: LT BLUE SST RED LAV PPT DK GREEN (LiHep) DK GREEN (SodH) ELLIOTT DK BLUE (K2) DK BLUE (S) ACD Blood Culture NIPT/NTD oLukas east MD - 12/03/2019 8:30 AM CST Cc: Chief Complaint Patient presents with Lnebir-io-QNZ, HLD, and prediabetes HPI Katherin Bhakta is [...] overdue for her 6mo f/u with her Visitor Information Assistant Dr. Tinsley (due to h/o elevated troponin/Type 2 OH) and requests referral back to him. Prediabetes [...] file Gets together: Not on file Attends sabianism service: Not on file Active member of [...] noted. Low sodium diet/DASH diet. Exercise per Visitor Information Assistant' s recommendations. The patient was instructed to self monitor her blood pressure once daily varying the times when it is checked and to bring therecord of readings to each office visit. The patient should follow-up sooner if the blood pressure is trending >/=130/80. - CONSULT/REFERRAL CARDIOLOGY - losartan 25 mg tablet; Take 1 tablet by mouth daily. - COMP. METABOLIC PANEL (86695) Hypercholesterolemia Continue current lipid-lowering pharmacotherapy. Low fat, low cholesterol diet was recommended/reviewed. Exercise per Visitor Information Assistant's recommendations. - COMP. METABOLIC PANEL (97859) - LIPID PANEL (22137)(TOTAL CHOLESTEROL, TRIGLYCERIDES, HDL) Prediabetes Carb-controlled diet. Exercise regularly and work on weight loss. Consider self glucose monitoring. Consider metformin to help prevent progression to overt diabetes. - COMP. METABOLIC PANEL (78017) - GLYCOSYLATED HEMOGLOBIN (A1C) Vitamin D deficiency Continue vit D supplementation. Will reassess the patient's vitamin D and calcium level. - COMP. METABOLIC PANEL (10206) - VITAMIN D, 25-OH Encounter for long-term (current) use of medications - COMP. METABOLIC PANEL (82530) - LIPID PANEL (05915)(TOTAL CHOLESTEROL, TRIGLYCERIDES, HDL) - GLYCOSYLATED HEMOGLOBIN (A1C) History of elevated troponin/Type 2 OH - CONSULT/REFERRAL CARDIOLOGY Chronic constipation Discussed the [...] I prefer formy patients to see a syrup blender for their pelvic exam /commercial correspondent evaluation given I perform this service so rarely. I feel a syrup blender is more adept at recognizing pathology on exam and I want my patients to benefit from that expertise. - 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 Plan of care, desired health behaviors, goals, [...] at a future visit. If applicable, the [facility] database was accessed to review any controlled substance prescription claims data. If the patient is taking prescribed medications, the [employer] prescription claims data in [place] was reviewed to assess patient compliance with the medication treatment plan. Follow-up: Return in about 1 month (around 01/03/2020) for blood pressure follow -up. Follow-up sooner if any problems or concerns. documented in this encounter Plan of Treatment Date Type Specialty Care Team Description 01/04/2020 Office Visit Family Medicine Lukas Newell MD [address] [place] [address] [place] [address] Name Type Priority Associated Diagnoses Order Schedule COMP. METABOLIC PANEL LAB Routine Essential hypertension 1 Occurrences starting (07861) Hypercholesterolemia 12/03/2019 until Prediabetes 02/01/2020 Encounter for long-term (current) use of medications Vitamin D deficiency LIPID PANEL (76445)(TOTAL LAB Routine Hypercholesterolemia 1 Occurrences starting CHOLESTEROL, [...] Problems Progress Quit using Tobacco Use No [place], tobacco Wons[place]ful A, (cigarettes, MD smokeless, etc) [...] Effective Phone Address Type Group Dates HIM [facility] [id number] 2019-Franci [phone] [address] [phone] [place] [address] documented as of this encounter
--- OUTSIDE RECORDS SUMMARY | 2020-01-17 19:48 | XMS REPORT | Summary of Care ---
:1960 Author Organization [facility] Address [address] [place] [address] Care Team Providers Name Role Phone Lukas Newell MD Primary Care Provider Reason for Visit Reason Comments Orders Encounter Details Date Type Department Care Team Description 12/09/2019 Case Management [facility] Family Lukas Newell, Orders Medicine - Noemi BOLANOS [address] [place] [address] [place] [address] [place], [place] [phone] [address] Allergies No Known Allergiesdocumented as of [...] Office Visit Family Medicine Lukas Newell MD [address] [place] [address] [place] [address] Name Type Priority Associated Diagnoses Order Schedule HEPATIC FUNCTION PANEL LAB Routine Abnormal liver function 1 Occurrences starting (57609) tests 12/09/2019 until (ALB,T.PRO,BILI 02/07/2020 T,BU/BC,ALT,AST,ALK PHOS) Health Maintenance Due Date Last Done Comments [...] filedocumented in this encounter Visit Diagnoses Diagnosis Abnormal liver function tests - Primary Other abnormal blood chemistry documented in this encounter Insurance Payer Benefit Plan / Subscriber ID Effective Phone Address Type Group Dates HIM [facility] [id number] 2019-Franci [phone] [facility] [phone] [place] [address] documented as of this encounter
--- OUTSIDE RECORDS SUMMARY | 2020-01-17 19:49 | XMS REPORT | Summary of Care ---
:1960 Author Organization [facility] Address [address] [place] [address] Care Team Providers Name Role Phone Lukas Newell MD Primary Care Provider Reason for Referral (Routine) Status Reason Specialty Diagnoses / Referred By Referred To Procedures Contact Contact New Request Dermatology Diagnoses Skin lesions Lukas Newell Procedures CONSULT/REFERRAL DERMATOLOGY MD Joanna [address] [place] [address] [place] [phone] (Routine) Status Reason Specialty Diagnoses / Referred By Referred To Procedures Contact Contact New Request Obstetrics & Diagnoses Referral of patient Reece Gynecology Procedures CONSULT/REFERRAL COUNTY NURSE Lukas Marshall MD [address] [place] [address] [facility] [address] Reason for Visit Reason Comments Hypertension Referral/consult dematology and dump grounds checker Allergies LAB WORK Encounter Details Date Type Department Care Team Description 01/07/2020 Office Visit [facility] Family Lukas Newell Essential hypertension (Primary Dx); Medicine - Noemi Marshall MD Skin lesions; [address] [place] [address] [place] [address] Referral of patient; [place], [place] Acute allergic rhinitis [id number] Allergies No Known Allergiesdocumented as of this encounter (statuses as of 01/09/2020) Medications Medication Sig Dispensed Refills Start Date [...] (two) Atopic dermatitis, times daily. unspecified type fluticasone propionate Use 2 Sprays in 16 g 5 01/07/2020 Active 50 mcg/actuation nasal each nostril sprayIndications: Acute daily. allergic rhinitis levocetirizine 5 mg Take 0.5-1 30 tablet 5 01/07/2020 Active tabletIndications: Acute tablets by mouth allergic rhinitis every evening. documented as of this encounter (statuses as of 01/09/2020) Active Problems Problem Noted Date Allergic rhinitis 01/09/2020 Chronic constipation 12/03/2019 Atopic dermatitis, unspecified type 12/03/2019 Chronic gout of multiple sites 05/08/2019 Prediabetes 03/25/2019 Type 2 myocardial infarction 03/16/2019 Tobacco use 03/16/2019 Troponin level elevated 03/01/2019 Essential hypertension 03/01/2019 Hyperlipidemia Vitamin D deficiency Anemia documented as of this encounter (statuses as of 01/09/2020) Resolved Problems Problem Noted Date Resolved Date GUILLERMINA (acute kidney injury) 03/01/2019 03/25/2019 Thrombocytopenia 03/01/2019 03/25/2019 Diarrhea 02/26/2019 03/16/2019 Chronic kidney disease 03/25/2019 documented as of this encounter (statuses as of 01/09/2020) Social History Tobacco Use Types Packs/Day Years [...] Sign Reading Time Taken Comments Blood Pressure 128/70 01/07/2020 1:03 PM MACHINE GUNNER Pulse 73 01/07/2020 1:03 PM MACHINE GUNNER Temperature 36.6 C (97.8 F) 01/07/2020 1:03 PM MACHINE GUNNER Respiratory Rate - - Oxygen Saturation - - Inhaled Oxygen Concentration - - Weight 60.3 kg (133 lb) 01/07/2020 1:03 PM MACHINE GUNNER Height 162.6 cm (5' 4") 01/07/2020 1:03 PM MACHINE GUNNER Body Mass Index 22.83 01/07/2020 1:03 PM MACHINE GUNNER documented in this encounter Patient Instructions Patient InstructionsCoLukas east MD - 01/07/2020 1:00 PM CST Prevention Guidelines, Women Ages 50 to 64 Screening tests and vaccines are an important part of managing your health. A screening test is doneto find possible disorders or diseases in people who don' t have any symptoms. The goal is to find a disease early so lifestyle changes can be made and you can be watched more closely to reduce the riskof disease, or to detect it early enough to treat it most effectively. Screening tests are not considered diagnostic, but are used to determine if more testing is needed. Health counseling is essential, too. Below are guidelines for these, for women ages 50 to 64. Talk with your healthcare provider to make sure youre up to date on what you need. Screening Who needs it How often Type 2 diabetes or prediabetes All women beginning at age 45 and women without symptoms at any age who are overweight or obese and have 1 or more additional risk factors for diabetes. At least every 3 years Type 2 diabetes or prediabetes All women diagnosed with gestational diabetes Lifelong testing every 3 years Type 2 diabetes All women with prediabetes Every year Alcohol misuse All women in this age group At routine exams Blood pressure All women in this age group Yearly checkup if your blood pressure is normal Normal blood pressure is less than 120/80 mm Hg If your blood pressure reading is higher than normal, follow the advice of your healthcare provider Breast cancer All women at average risk in this age group Yearly mammogram should be done until age 54. At age 55, you can switch to every other year or choose to continue yearly. All women should know the possible benefits and risks of breast cancer screening with mammograms. Cervical cancer All women in this age group, except women who have had a complete hysterectomy Pap test every 3 years or Pap test with human papillomavirus (HPV) test every 5 years Chlamydia Women at increased risk for infection At routine exams Colorectal cancer All women at average risk in this age group Multiple tests are available and are used at different times. Possible tests include: Flexible sigmoidoscopy every 5 years, or Colonoscopy every 10 [address], [address] colonography (virtual colonoscopy) every 5 years, or Yearly fecal occult blood test, or Yearly fecal immunochemical test every year, or Stool DNA test, every 3 years If you choose a test other than a colonoscopy and have an abnormal test result, you will need to follow up with a colonoscopy. Screening advice varies among expert groups. Talk with your healthcare provider about which tests are best for you. Some people should be screened using a different schedule because of their personal or family healthhistory. Talk with your healthcare provider about your health history. Depression All women in this age group At routine exams Gonorrhea Sexually active women at increased risk for infection At routine exams Hepatitis C Anyone at increased risk; 1 time for those born between 1945 and 1965 At routine exams High cholesterol or triglycerides All women in this age group who are at risk for coronary artery disease At least every 5 years HIV All women At routine exams Lung cancer Adults age 55 to 80 who have smoked Yearly screening in smokers with 30 pack-year history of smoking or who quit within 15 years Obesity All women in this age group At routine exams Osteoporosis Women who are postmenopausal Ask your healthcare provider Syphilis Women at increased risk for infection talk with your healthcare provider At routine exams Tuberculosis Women at increased risk for infection talk with your healthcare provider Ask your healthcare provider Vision All women in this age group Ask your healthcare provider Vaccine Who needs it How often Chickenpox (varicella) All women in this age group who have no record of this infection or vaccine 2doses; the second dose should be given at least 4 weeks after the first dose Hepatitis A Women at increased risk for infection talk with your healthcare provider 2 doses given at least 6 months apart Hepatitis B Women at increased risk for infection talk with your healthcare provider 3 doses over 6 months; second dose should be given 1 month after the first dose; the third dose should be given at least 2 months after the second dose and at least 4 months after the first dose Haemophilus influenzae Type B (HIB) Women at increased risk for infection talk with your healthcare provider 1 to 3 doses Influenza (flu) All women in this age group Once a year Measles, mumps, rubella (MMR) Women in this age group through their late 50s who have no record of these infections or vaccines 1 dose Meningococcal Women at increased risk for infection talk with your healthcare provider 1 or moredoses Pneumococcal conjugate vaccine (PCV13) and pneumococcal polysaccharide vaccine ( PPSV23) Women at increased risk for infection talk with your healthcare provider PCV13: 1 dose ages 19 to 65 (protects against 13 types of pneumococcal bacteria) PPSV23: 1 to 2 doses through age 64, or 1 dose at 65 or older (protects against 23 types of pneumococcal bacteria) Tetanus/diphtheria/pertussis (Td/Tdap) booster All women in this age group Td every 10 years, or a 1-time dose of Tdap instead of a Td booster after age 18, then Td every 10 years Zoster All women ages 60 and older 1 dose Counseling Who needs it How often BRCA gene mutation testing for breast and ovarian cancer susceptibility Women with increased risk for having gene mutation When your risk is known Breast cancer and chemoprevention Women at high risk for breast cancer When your risk is known Diet and exercise Women who are overweight or obese When diagnosed, and then at routine exams Sexually transmitted infection prevention Women at increased risk for infection talk with your healthcare provider At routine exams Use of daily aspirin Women ages 55 and up in this age group who are at risk for cardiovascular health problems such as stroke When your risk is known Use of tobacco and the health effects it can cause All women in this age group Every exam 1 [employer] Ke[employer] last reviewed this educational content on 12/06/201519993919-7107 [employer]. [address] [place] [address], [place] [address]. All rights reserved. This information is not intended as a substitute for professional medical care. Always follow your healthcare professional's instructions. INE GUNNER documented in this encounter Progress Notes Genet Jameson - 01/07/2020 1:00 PM CST Venipuncture collection performed by clean technique on the right anticubitus. Total of 1 attempts were made. Slight pressure and a bandage/dressing were applied to the site(s). The patient experiencedno complications. The following specimens were processed according to instructions and sent to [facility] laboratories per lab order on BLUE SST RED LAV PPT DK GREEN (LiHep) DK GREEN (SodH) ELLIOTT DK BLUE (K2) DK BLUE (S) ACD Blood Culture NIPT/NTD ukas Newell MD - 01/07/2020 1:00 PM CST Cc: Chief Complaint Patient presents with Hypertension Referral/consult dematology and dump grounds checker Allergies LAB WORK HPI Katherin Bhakta is a 59 year old female who presents today for HTN and allergy symptoms including rhinorrhea. She would also like a referral to [facility] for a WWE and a mammogram, and also a referral to Dermatology for chronic irritated bothersome skin lesions on her back. HTN follow-up Medication compliance: Good. Denies adverse medication side effects. Dietary compliance: Fair. Exercise frequency: Not active. Blood pressure readings: Doesn't self-monitor. Associated symptoms: None. Denies cp or SOB. Cardiovascular screening (ex. EKG, stress test) in the past 3 years?: Yes. RUNNY NOSE Presenting symptoms: congestion, cough and rhinorrhea Presenting symptoms: no ear pain, no facial pain, no fatigue, no fever and no sore throat Severity: Moderate Onset quality: Sudden Duration: 1 week Timing: Constant Progression: Waxing and waning Chronicity: New Relieved by: Nothing Worsened by: Nothing Ineffective treatments: OTC medications Associated symptoms: sneezing Associated symptoms: no arthralgias, no headaches, no myalgias, no neck pain, no sinus pain, no swollen glands and no wheezing Risk factors: no recent travel and no sick contacts Allergies Katherin has No Known Allergies. Medications Outpatient Medications Prior to Visit Medication Sig Dispense Refill GARLIC ORAL Take by mouth. BEATRICE ROOT, BULK, MISC losartan 25 mg tablet Take 1 tablet by mouth daily. 30 tablet 5 Polyethylene Glycol 3350 17 gram powder Take 1 Packet by mouth daily. 30 Packet 5 triamcinolone acetonide 0.1 % cream Apply to area(s) 2 (two) times daily. 80 g 2 TURMERIC ORAL Take by mouth. ergocalciferol, vitamin d2, 50,000 unit capsule Take 1 capsule by mouth weekly. Take for 12 weeks then start OTC vitamin D3 2000 units daily 4 capsule 2 pravastatin 10 mg tablet Take 1 tablet by mouth at bedtime. 30 tablet 11 aspirin 81 mg chewable tablet Take 1 tablet by mouth daily. 30 tablet 11 No facility-administered medications prior to visit. Histories Past Medical History: Diagnosis Date GUILLERMINA (acute kidney injury) Anemia Atopic dermatitis, unspecified type 12/03/2019 Chronic constipation 12/03/2019 Chronic gout of multiple sites 05/08/2019 Hyperlipidemia [...] file Gets together: Not on file Attends pentecostalism service: Not on file Active member of [...] Father alcoholism Review of Systems Constitutional: Negative. Negative for fatigue and fever. HENT: Positive for congestion, rhinorrhea and sneezing. Negative for ear pain, sinus pain and sore throat. Eyes: Negative. Respiratory: Positive for cough. Negative for wheezing. Cardiovascular: Negative. Gastrointestinal: Negative. Genitourinary: Negative. Musculoskeletal: Negative. Negative for arthralgias, myalgias and neck pain. Skin: Negative. Neurological: Negative. Negative for headaches. Psychiatric/Behavioral: Negative. Endocrine: Endocrine negative Vital Signs BP 128/70 | Pulse 73 | Temp 36.6 C (97.8 F) (Tympanic) | Ht 5' 4" (1.626 m) | Wt 133 lb (60.3 kg) | BMI 22.83 kg/m Physical Exam Constitutional: She is oriented to person, place, and time. She appears well- developed and well-nourished. No distress. HENT: Nose: Mucosal edema, rhinorrhea (clear) and septal deviation present. Mouth/Throat: Oropharynx is clear and moist and mucous membranes are normal. Eyes: Pupils are equal, [...] Skin: Skin is warm and dry. Rash (excoriated hyperpigmented scaly papules and plaques carpeting the skin of the back) noted. No pallor. multiple excoriated papules with Psychiatric: She has a normal mood and affect. Her behavior is normal. Nursing note and vitals reviewed. Assessment/Plan Diagnoses and all orders for this visit: Essential hypertension Bp is now at goal. Continue current medication(s). Low sodium diet/DASH diet. Exercise regularly. The patient was instructed to self monitor her blood pressure once daily varying the times when it is checked and to bring the record of readings to each office visit. The patient should follow-up sooner if the blood pressure is trending >/=130/80. - BASIC METABOLIC PANEL (NA, K, CL, CO2, GLUCOSE, BUN, CREATININE, CA) Skin lesions Agree with evaluation and management by a security systems specialist. Referral initiated. - CONSULT/REFERRAL DERMATOLOGY Referral of patient Referral for routine gynecologic exam and mammography. I explained to the patient that I prefer formy patients to see a post closing specialist for their pelvic exam /dump grounds checker evaluation given I perform this service so rarely. I feel a post closing specialist is more adept at recognizing pathology on exam and I want my patients to benefit from that expertise. - CONSULT/REFERRAL COUNTY NURSE Acute allergic rhinitis Medications as noted including a nasal steroid and oral antihistamine. Mucinex max strength 1200mg tabs q12hr PRN congestion for mucolytic and expectorant action. The patient was advised to stay hydrated to aid in clearance of secretions. Recommended avoidance of allergic triggers whenever possible. We reviewed tips for controlling allergens in the patient's environment. - fluticasone propionate 50 mcg/actuation nasal spray; Use 2 Sprays in each nostril daily. - levocetirizine 5 mg tablet; Take 0.5-1 tablets by mouth every evening. Plan of care, desired health behaviors, goals, [...] at a future visit. If applicable, the [facility] database was accessed to review any controlled substance prescription claims data. If the patient is taking prescribed medications, the [employer] prescription claims data in [place] was reviewed to assess patient compliance with the medication treatment plan. Follow-up: Return in about 6 months (around 2020) for routine follow-up. Follow-up sooner if any problems or concerns. Scribe Anila Aden , am scribing for, and in the presence of, Lukas Newell MD who performed the services described here-in. Anila Damon, January 07, 2020, 1:17 PM Physician Nehal Grijalva, Lukas Newell MD, personally performed the services described in this documentation , as scribed by, Anila Damon in my presence and it is both accurate and complete. Lukas Newell MD January 07, 2020, 1:17 PM documented in this encounter Plan of Treatment Date Type Specialty Care Team Description 01/12/2020 Appointment Radiology Lukas Newell MD [address] [place] [address] [place] [phone] 2020 Office Visit Family Medicine Lukas Newell MD [address] [place] [address] [place] [phone] Health Maintenance Due Date Last Done [...] Problems Progress Quit using Tobacco Use No Reece tobacco Lukas Marshall, (cigarettes, smokeless, etc) documented as of this encounter Procedures Procedure Name Priority Date/Time Associated Diagnosis Comments BASIC METABOLIC Routine 01/07/2020 1:31 Essential Results for this PANEL (NA, K, CL, PM MACHINE GUNNER hypertension procedure are in CO2, GLUCOSE, BUN, the results CREATININE, CA) section. documented in this encounter Results BASIC METABOLIC PANEL (NA, K, CL, CO2, GLUCOSE, BUN, CREATININE, CA) (2019 1:31 PM MACHINE GUNNER) NA 142 135 - 145 [facility] mmol/L [facility] K 3.7 3.5 - 5.0 [facility] mmol/L [facility] CL 107 98 - 108 mmol/L [facility] CO2 TOTAL 28 23 - 31 mmol/L [facility] AGAP 7 2 - 16 [facility] BUN 16 7 - 23 mg/dL [facility] GLUCOSE 113 (H) 70 - 110 mg/dL [facility] CREATININE 0.87 0.50 - 1.04 [facility] mg/dL [facility] CALCIUM 9.1 8.6 - 10.6 [facility] mg/dL [facility] eGFR Calculation 66.2 mL/min/1.73m2 [facility] ([facility] Polish) eGFR Calculation 80.2 mL/min/1.73m2 [facility] () [facility] Specimen Blood - ARM, LEFT Narrative Performed At Association of Glomerular Filtration Rate (GFR) [facility] and Staging of Kidney Disease* + + +- + | GFR (mL/min/1.73 m2) | With Kidney Damage | Without Kidney Damage + + +- + | >90 | Stage one | Normal + + +- + | 60-89 | Stage two | Decreased GFR + + +- + | 30-59 | Stage three | Stage three + + +- + | 15-29 | Stage four | Stage four + + +- + | <15 (or dialysis) | Stage five | Stage five + + +- + *Each stage assumes the associated GFR level has been in effect for at least three months. Stages 1 to 5, with or without kidney disease, indicate chronic kidney disease. Notes: Determination of stages one and two (with eGFR >59mL/min/1.73 m2) requires estimation of kidney damage for at least three months as defined by structural or functional abnormalities of the kidney, manifested by either: Pathological abnormalities or Markers of kidney damage (including abnormalities in the composition of the blood or urine or abnormalities in imaging tests). Performing Organization Address City/State/Zipcode Phone Number [facility] CLIA: [id number], [address] [place] [address] [phone] documented in this encounter Visit Diagnoses Diagnosis Essential hypertension - Primary Unspecified essential hypertension Skin lesions Referral of patient Referral of patient without examination or treatment Acute allergic rhinitis documented in this encounter Insurance Payer Benefit Plan / Subscriber ID Effective Phone Address Type Group Dates [facility] [id number] 2019-Franci [phone] [place] [address] documented as of this encounter
--- OUTSIDE RECORDS SUMMARY | 2020-01-17 19:49 | XMS REPORT | Summary of Care ---
:1960 Author Organization [facility] Address [address] [place] [id number] Care Team Providers Name Role Phone Lukas Newell MD Primary Care Provider Reason for Referral Radiology Services (Routine) Status Reason Specialty Diagnoses / Referred By Referred To Procedures Contact Contact New Request Diagnostic Diagnoses Visit for screening mammogram Reece, Radiology Procedures BI SCREENING TOMOSYNTHESIS BILATERAL Lukas Marshall MD [address] [place] [address] Reason for Visit Reason Comments Appointment Encounter Details Date Type Department Care Team Description 01/08/2020 Telephone [facility] Dariel Weinstein MD Appointment [facility] [address] [place] [address] [address] [place] [address] [place] [address] Allergies No Known Allergiesdocumented as of this encounter (statuses as of 01/08/2020) Medications Medication Sig Dispensed Refills Start Date End Date Status aspirin 81 mg chewable Take 1 tablet by 30 tablet 03/03/2019 Active tabletIndications: mouth daily. Diarrhea, unspecified [...] as of this encounter (statuses as of 01/08/2020) Active Problems Problem Noted Date Chronic constipation 12/03/2019 Atopic dermatitis, unspecified type 12/03/2019 Chronic gout of multiple sites 05/08/2019 Prediabetes 03/25/2019 Type 2 myocardial infarction 03/16/2019 Tobacco use 03/16/2019 Troponin level elevated 03/01/2019 Essential hypertension 03/01/2019 Hyperlipidemia Vitamin D deficiency Anemia documented as of this encounter (statuses as of 01/08/2020) Resolved Problems Problem Noted Date Resolved Date GUILLERMINA (acute kidney injury) 03/01/2019 03/25/2019 Thrombocytopenia 03/01/2019 03/25/2019 Diarrhea 02/26/2019 03/16/2019 Chronic kidney disease 03/25/2019 documented as of this encounter (statuses as of 01/08/2020) Social History Tobacco Use Types Packs/Day Years [...] Description 01/12/2020 Appointment Radiology Lukas Newell MD [address] [place] [address] [place] [phone] 2020 Office Visit Family Medicine Lukas Newell MD [address] [place] [address] KATHY MARTINES [phone] Name Type Priority Associated Diagnoses Order Schedule BI SCREENING TOMOSYNTHESIS IMAGING Routine Visit for screening Expected: BILATERAL mammogram 01/08/2020, Expires: 01/08/2021 Health Maintenance Due Date Last Done Comments [...] Problems Progress Quit using Tobacco Use No iman Newell, (cigarettes, smokeless, etc) documented as of this encounter Results Not on filedocumented in this encounter Visit Diagnoses Diagnosis Visit for screening mammogram - Primary Other screening mammogram documented in this encounter Insurance Payer Benefit Plan / Subscriber ID Effective Phone Address Type Group Dates [facility] [id number] 2019-Franci [phone] [facility] [employer] [phone] [place] [address] documented as of this encounter
--- OUTSIDE RECORDS SUMMARY | 2020-01-17 19:49 | XMS REPORT | Summary of Care ---
:1960 Author Organization [facility] - [facility] Address [address] [place] [address] Care Team Providers Name Role Phone Lukas Newell MD Primary Care Provider Reason for Visit Reason Comments LAB WORK Encounter Details Date Type Department Care Team Description 12/22/2019 Social Work Specialist Visit [facility] Family Lukas Newell MD [facility] [place] [address] Abnormal liver Medicine - [facility], Adc Fam Pob I function tests [facility] [address] [facility] [place] [address] Allergies No Known Allergiesdocumented as of this encounter (statuses as of 12/25/2019) Medications Medication Sig Dispensed Refills Start Date [...] as of this encounter (statuses as of 12/25/2019) Active Problems Problem Noted Date Chronic constipation 12/03/2019 Atopic dermatitis, unspecified type 12/03/2019 Chronic gout of multiple sites 05/08/2019 Prediabetes 03/25/2019 Type 2 myocardial infarction 03/16/2019 Tobacco use 03/16/2019 Troponin level elevated 03/01/2019 Essential hypertension 03/01/2019 Hyperlipidemia Vitamin D deficiency Anemia documented as of this encounter (statuses as of 12/25/2019) Resolved Problems Problem Noted Date Resolved Date GUILLERMINA (acute kidney injury) 03/01/2019 03/25/2019 Thrombocytopenia 03/01/2019 03/25/2019 Diarrhea 02/26/2019 03/16/2019 Chronic kidney disease 03/25/2019 documented as of this encounter (statuses as of 12/25/2019) Social History Tobacco Use Types Packs/Day Years [...] Office Visit Family Medicine Lukas Newell MD [address] [place] [address] [place] [address] Health Maintenance Due Date Last Done [...] Problems Progress Quit using Tobacco Use No Gilchrist, tobacco Wondiful A, (cigarettes, MD smokeless, etc) documented as of this encounter Procedures Procedure Name Priority Date/Time Associated Diagnosis Comments HEPATIC FUNCTION Routine 12/22/2019 8:11 AM Abnormal liver Results for this PANEL (16706) LOSS PREVENTION OPERATIONS MANAGER function tests procedure are in (ALB,T.PRO,BILI the results T,BU/BC,ALT,AST,ALK section. PHOS) documented in this encounter Results HEPATIC FUNCTION PANEL (57423) (ALB,T.PRO,BILI T,BU/BC,ALT,AST,ALK PHOS) (2019 8:11 AM LOSS PREVENTION OPERATIONS MANAGER) TOTAL BILI 0.3 0.1 - 1.1 mg/dL [facility] BILI UNCON 0.1 0.1 - 1.1 mg/dL [facility] BILI CONJ 0.0 0.0 - 0.3 mg/dL [facility] T PROTEIN 7.5 6.3 - 8.2 g/dL [facility] ALBUMIN 4.5 3.5 - 5.0 g/dL [facility] ALK PHOS 71 34 - 122 U/L [facility] ALTv 29 5 - 35 U/L [facility] AST(SGOT) 34 13 - 40 U/L [facility] Specimen Blood - ARM, LEFT Performing Organization Address City/State/Zipcode Phone Number [facility] CLIA: [id number], [address] [place] [address] documented in this encounter Visit Diagnoses Diagnosis Abnormal liver function tests Other abnormal blood chemistry documented in this encounter Insurance Payer Benefit Plan / Subscriber ID Effective Phone Address Type Group Dates [facility] [id number] 2019-Prese [phone] HMO HEALTH [employer] [facility] [id number] [place] [address] [phone] [facility] (Home) [place] [address] documented as of this encounter
--- OUTSIDE RECORDS SUMMARY | 2020-01-17 19:49 | XMS REPORT | Summary of Care ---
:1960 Author Organization [facility] Address [address] [place] [address] Care Team Providers Name Role Phone Lukas Newell MD Primary Care Provider Reason for Visit Reason Comments Results Encounter Details Date Type Department Care Team Description 12/14/2019 Telephone [facility] Family Medicine Lukas Newell MD Results - [address] [place] [address] [place] [address] Allergies No Known Allergiesdocumented as of this encounter (statuses as of 12/14/2019) Medications Medication Sig Dispensed Refills Start Date [...] as of this encounter (statuses as of 12/14/2019) Active Problems Problem Noted Date Chronic constipation 12/03/2019 Atopic dermatitis, unspecified type 12/03/2019 Chronic gout of multiple sites 05/08/2019 Prediabetes 03/25/2019 Type 2 myocardial infarction 03/16/2019 Tobacco use 03/16/2019 Troponin level elevated 03/01/2019 Essential hypertension 03/01/2019 Hyperlipidemia Vitamin D deficiency Anemia documented as of this encounter (statuses as of 12/14/2019) Resolved Problems Problem Noted Date Resolved Date GUILLERMINA (acute kidney injury) 03/01/2019 03/25/2019 Thrombocytopenia 03/01/2019 03/25/2019 Diarrhea 02/26/2019 03/16/2019 Chronic kidney disease 03/25/2019 documented as of this encounter (statuses as of 12/14/2019) Social History Tobacco Use Types Packs/Day Years [...] Treatment Date Type Specialty Care Team Description 12/22/2019 Market Research Lead Visit Family Medicine Lab, Adc Billy Kemp I 01/04/2020 Office Visit Family Medicine Lukas Newell MD [address] [place] [address] [place] [address] Health Maintenance Due Date Last Done [...] Type Problems Progress Quit using Tobacco Use iman Joe Wondiful A, (cigarettes, smokeless, etc) documented as of this encounter Results Not on filedocumented in this encounter Insurance Payer Benefit Plan / Subscriber ID Effective Phone Address Type Group Dates HIM [facility] [id number] 2019-Franci [phone] [address] HMO HEALTH [employer] [facility] CHO[facility] nt 86 [phone] [place] [address] documented as of this encounter
--- OUTSIDE RECORDS SUMMARY | 2020-01-17 19:50 | XMS REPORT | Summary of Care ---
:1960 Author Organization [facility] - [facility] Address [address] [place] [address] Care Team Providers Name Role Phone Lukas Newell MD Primary Care Provider Reason for Referral (Routine) Status Reason Specialty Diagnoses / Referred By Referred To Procedures Contact Contact New Request Dermatology Diagnoses Skin lesions Lukas Newell Procedures CONSULT/REFERRAL DERMATOLOGY MD Joanna [address] [place] [address] [place] [address] (Routine) Status Reason Specialty Diagnoses / Referred By Referred To Procedures Contact Contact New Request Obstetrics & Diagnoses Referral of patient Reece Gynecology Procedures CONSULT/REFERRAL ELDERLY SITTER Lukas Marshall MD [address] [place] [address] [facility] [place] [address] Reason for Visit Reason Comments Hypertension Referral/consult dematology and worm grower Allergies LAB WORK Encounter Details Date Type Department Care Team Description 01/07/2020 Office Visit [facility] Family Lukas Newell Essential hypertension (Primary Dx); Medicine - Noemi Marshall MD Skin lesions; [address] [place] [address] [place] [address] Referral of patient; [place], [place] Acute allergic rhinitis [id number] Allergies No Known Allergiesdocumented as of [...] Comments Blood Pressure 128/70 01/07/2020 1:03 PM MOLDER Pulse 73 01/07/2020 1:03 PM MOLDER Temperature 36.6 C (97.8 F) 01/07/2020 1:03 PM MOLDER Respiratory Rate - - Oxygen Saturation - - Inhaled Oxygen Concentration - - Weight 60.3 kg (133 lb) 01/07/2020 1:03 PM MOLDER Height 162.6 cm (5' 4") 01/07/2020 1:03 PM MOLDER Body Mass Index 22.83 01/07/2020 1:03 PM MOLDER documented in this encounter Patient Instructions Patient [...] in this age group Every exam 1 [employer] last reviewed this educational content on 12/06/201519992071-2858 [employer]. [address] [place] [address], [place] [address]. All rights reserved. This information is not intended as a substitute for professional medical care. Always follow your healthcare professional's instructions. ER documented in this encounter Progress Notes Genet Jameson - 01/07/2020 1:00 PM CST Venipuncture collection performed by clean technique on the right anticubitus. Total of 1 attempts were made. Slight pressure and a bandage/dressing were applied to the site(s). The patient experiencedno complications. The following specimens were processed according to instructions and sent to [facility] laboratories per lab order on BLUE SST RED LAV PPT DK GREEN (LiHep) DK GREEN (SodH) ELLIOTT DK BLUE (K2) DK BLUE (S) ACD Blood Culture NIPT/NTD ukas Newell MD - 01/07/2020 1:00 PM CST Cc: Chief Complaint Patient presents with Hypertension Referral/consult dematology and worm grower Allergies LAB WORK HPI Katherin Bhakta is a 59 year old female who presents today for HTN and allergy symptoms including rhinorrhea. She would also like a referral to [facility] for a WWE and a mammogram, and [...] file Gets together: Not on file Attends scientologist service: Not on file Active member of [...] Agree with evaluation and management by a validation specialist. Referral initiated. - CONSULT/REFERRAL DERMATOLOGY Referral of patient Referral for routine gynecologic exam and mammography. I explained to the patient that I prefer formy patients to see a supervisor gelatin plant for their pelvic exam /worm grower evaluation given I perform this service so rarely. I feel a supervisor gelatin plant is more adept at recognizing pathology on exam and I want my patients to benefit from that expertise. - CONSULT/REFERRAL ELDERLY SITTER Acute allergic rhinitis Medications as noted including [...] at a future visit. If applicable, the [facility] database was accessed to review any controlled substance prescription claims data. If the patient is taking prescribed medications, the [facility] Scripts prescription claims data in [employer] was reviewed to assess patient compliance with [...] and it is both accurate and complete. Lkuas Newell MD January 07, 2020, 1:17 PM documented in this encounter Plan of Treatment Date Type Specialty Care Team Description 01/12/2020 Appointment Radiology Lukas Newell MD [address] [place] [address] [place] [address] 2020 Office Visit Family Medicine Lukas Newell MD [address] [place] [address] [place] [address] Health Maintenance Due Date Last Done [...] for this PANEL (NA, K, CL, PM MOLDER hypertension procedure are in CO2, GLUCOSE, BUN, the results CREATININE, CA) section. documented in this encounter Results BASIC METABOLIC PANEL (NA, K, CL, CO2, GLUCOSE, BUN, CREATININE, CA) (2019 1:31 PM MOLDER) NA 142 135 - 145 [facility] mmol/L [facility] K 3.7 3.5 - 5.0 [facility] mmol/L [facility] CL 107 98 - 108 mmol/L [facility] CO2 TOTAL 28 23 - 31 mmol/L [facility] AGAP 7 2 - 16 [facility] BUN 16 7 - 23 mg/dL [facility] GLUCOSE 113 (H) 70 - 110 mg/dL [facility] CREATININE 0.87 0.50 - 1.04 [facility] mg/dL [facility] CALCIUM 9.1 8.6 - 10.6 [facility] mg/dL [facility] eGFR Calculation 66.2 mL/min/1.73m2 [facility] ([facility]ORAT[facility] Lithuanian) eGFR Calculation 80.2 mL/min/1.73m2 [facility] () [facility] Specimen Blood - ARM, LEFT Narrative Performed At Association of Glomerular Filtration Rate (GFR) [facility] and Staging of Kidney Disease* + [...] tests). Performing Organization Address City/State/Zipcode Phone Number [facility] CLIA: [id number], [address] [place] [address] documented in this encounter Visit Diagnoses Diagnosis Essential hypertension - Primary Unspecified essential hypertension Skin lesions Referral of patient Referral of patient without examination or treatment Acute allergic rhinitis documented in this encounter Insurance Payer Benefit Plan / Subscriber ID Effective Phone Address Type Group Dates [facility] [id number] 2019-Franci [phone] [address] HMO [employer] nt [phone] [place] [address] documented as of this encounter
--- OUTSIDE RECORDS SUMMARY | 2020-01-17 19:50 | XMS REPORT | Summary of Care ---
:1960 Author Organization [facility] - [facility] Address [address] [place] [address] Care Team Providers Name Role Phone Lukas Newell MD Primary Care Provider Encounter Details Date Type Department Care Team Description 01/12/2020 Orders Only [facility] Doctor Unassigned, No [address] [facility] [place] [address] [address] [place] [id number] Allergies No Known Allergiesdocumented as of this encounter (statuses as of 01/12/2020) Medications Medication Sig Dispensed Refills Start Date [...] as of this encounter (statuses as of 01/12/2020) Active Problems Problem Noted Date Allergic rhinitis 01/09/2020 Chronic constipation 12/03/2019 Atopic dermatitis, unspecified type 12/03/2019 Chronic gout of multiple sites 05/08/2019 Prediabetes 03/25/2019 Type 2 myocardial infarction 03/16/2019 Tobacco use 03/16/2019 Troponin level elevated 03/01/2019 Essential hypertension 03/01/2019 Hyperlipidemia Vitamin D deficiency Anemia documented as of this encounter (statuses as of 01/12/2020) Resolved Problems Problem Noted Date Resolved Date GUILLERMINA (acute kidney injury) 03/01/2019 03/25/2019 Thrombocytopenia 03/01/2019 03/25/2019 Diarrhea 02/26/2019 03/16/2019 Chronic kidney disease 03/25/2019 documented as of this encounter (statuses as of 01/12/2020) Social History Tobacco Use Types Packs/Day Years [...] Treatment Date Type Specialty Care Team Description 01/14/2020 Office Visit Dermatology Esther Ureña MD [address] [place] [address]. [place] [address] 2020 Office Visit Family Medicine Lukas Newell MD [address] [place] [address] KATHY MARTINES [address] Health Maintenance Due Date Last Done [...] Procedure Name Priority Date/Time Associated Diagnosis Comments ASSIGNMENT OF BENEFITS Routine 01/12/2020 9:24 AM PROJECT STRUCTURAL ENGINEER documented in this encounter Results Not on filedocumented in this encounter Insurance Payer Benefit Plan / Subscriber ID Effective Phone Address Type Group Dates [facility] [id number] 2019-Franci [phone] [employer] [facility] [phone] [place] [address] documented as of this encounter
--- OUTSIDE RECORDS SUMMARY | 2020-01-17 19:50 | XMS REPORT | Summary of Care ---
:1960 Author Organization [facility] Address [address] [place] [address] Care Team Providers Name Role Phone Lukas Newell MD Primary Care Provider Reason for Referral Radiology Services (Routine) Status Reason Specialty Diagnoses / Referred By Referred To Procedures Contact Contact Closed Diagnostic Diagnoses Visit for screening mammogram Reece, Radiology Procedures BI SCREENING TOMOSYNTHESIS BILATERAL Lukas Marshall MD [address] [place] [address] [place] [address] Reason for Visit Radiology Services (Routine) Status Reason Specialty Diagnoses / Referred By Referred To Procedures Contact Contact Closed Diagnostic Diagnoses Visit for screening mammogram Reece, Radiology Procedures BI SCREENING TOMOSYNTHESIS BILATERAL Lukas Marshall MD [address] [place] [address] [place] [address] Encounter Details Date Type Department Care Team Description 01/12/2020 Hospital Encounter [facility] Lukas Hitchcock Arrived [facility] [address] [place] [address] [place] [address] [place] [address] [place], [place] [phone] [address] Allergies No Known Allergiesdocumented as of this encounter (statuses as of 01/13/2020) Medications Medication Sig Dispensed Refills Start Date [...] as of this encounter (statuses as of 01/13/2020) Active Problems Problem Noted Date Allergic rhinitis 01/09/2020 Chronic constipation 12/03/2019 Atopic dermatitis, unspecified type 12/03/2019 Chronic gout of multiple sites 05/08/2019 Prediabetes 03/25/2019 Type 2 myocardial infarction 03/16/2019 Tobacco use 03/16/2019 Troponin level elevated 03/01/2019 Essential hypertension 03/01/2019 Hyperlipidemia Vitamin D deficiency Anemia documented as of this encounter (statuses as of 01/13/2020) Resolved Problems Problem Noted Date Resolved Date GUILLERMINA (acute kidney injury) 03/01/2019 03/25/2019 Thrombocytopenia 03/01/2019 03/25/2019 Diarrhea 02/26/2019 03/16/2019 Chronic kidney disease 03/25/2019 documented as of this encounter (statuses as of 01/13/2020) Social History Tobacco Use Types Packs/Day Years [...] Care Team Description 01/14/2020 Office Visit Dermatology Toan Joseph MD [address] COUNTS INCLUDE 234 [facility] [id number] [place], [place] [id number] Esther Ureña MD [address] [facility] [place] [phone] 2020 Office Visit Family Medicine Lukas Newell MD [address] [place] [address] [facility] [place] [address] Health Maintenance Due Date Last Done Comments PAP SMEAR 1979 LUNG CANCER SCREEN: Recommended 2013 for age 55-80 with 30 + pack year history COLONOSCOPY 04/30/2020 Postponed from 2008 (Refused) DTaP,Tdap,and Td Vaccines (1 - 04/30/2020 Postponed from 1969 Tdap) (Refused) Zoster Recombinant Vaccine 04/30/2020 Postponed from 2008 (SHINGRIX) (1 of 2) (Refused) INFLUENZA VACCINE (#1) 2020 Postponed from 07/12/2019 (Refused) PNEUMOCOCCAL 0-64 YEARS COMBINED 12/03/2020 Postponed from 1964 SERIES (1 of 1 - PPSV23) (Refused) Breast Cancer Screening 01/11/2021 01/12/2020 (MAMMOGRAM) HEPATITIS C (HCV) SCREEN Completed 03/17/2019 documented as of this encounter Goals Goal Patient Goal Associated Recent Patient-Stated? Author Type Problems Progress Quit using Tobacco Use iman Joe, (cigarettes, smokeless, etc) documented as of this encounter Procedures Procedure Name Priority Date/Time Associated Comments Diagnosis BI SCREENING Routine 01/12/2020 10:01 Visit for screening Results for this TOMOSYNTHESIS AM STEAK SAUCE MAKER mammogram procedure are in BILATERAL the results section. documented in this encounter Results BI SCREENING TOMOSYNTHESIS BILATERAL (01/12/2020 10:01 AM STEAK SAUCE MAKER) Specimen Narrative Performed At Examination: PACS BI SCREENING TOMOSYNTHESIS BILATERAL History: Patient is 59 year old and is seen for: Screening mammogram. Computer-aided detection (CAD) utilized. Comparisons: 09/01/2013 BI SCREENING MAMMOGRAM BILATERAL (No Change) Findings: The breasts are almost entirely fatty. Right There is a 4 mm equal density, oval mass with circumscribed margins seen in the upper outer quadrant of the right breast in the anterior depth, 1.9 cm from the nipple. Compared to the previous study, there are no significant changes. Left There is no evidence of suspicious masses, calcifications, or other abnormal findings in the left breast. Impression: No signs of malignancy. Recommendation: Annual mammographic follow-up - Right Annual mammographic follow-up - Left BI-RADS Category: Both 2 - Benign Performing Organization Address City/State/Zipcode Phone Number PACS documented in this encounter Visit Diagnoses Diagnosis Visit for screening mammogram Other screening mammogram documented in this encounter Insurance Payer Benefit Plan / Subscriber ID Effective Phone Address Type Group Dates HIM [facility] [id number] 2019-Prese [phone] HMO HEALTH [employer] [facility] nt [phone] [place] [address] documented as of this encounter
--- NOTE | 2020-01-17 20:18 | ER ---
Nurse's Notes [facility] Name: Katherin Bhakta Age: 59 yrs Sex: Female : 1960 Arrival Date: 01/17/2020 Time: 19:48 Bed 14 Private MD: Diagnosis: Rash and other nonspecific skin eruption Presentation: 01/16 20:04 Chief complaint: Patient states: Painful rash to her back that would come and go for aj1 the past year. States she has tried multiple home remedies with no relief. She has not had the rash evaluated by a PHCP prior to today. Coronavirus screen: The patient has NOT traveled to a country currently being monitored by the CDC within the last 14 days. Ebola Screen: Patient denies travel to an Ebola-affected area in the 21 days before illness onset. Initial Sepsis Screen: Does the patient meet any 2 criteria? No. Patient's initial sepsis screen is negative. Does the patient have a suspected source of infection? No. Patient's initial sepsis screen is negative. Risk Assessment: Do you want to hurt yourself or someone else? Patient reports no desire to harm self or others. 20:04 Method Of Arrival: Ambulatory aj1 20:04 Acuity: RIDDHI 4 aj1 20:15 Onset of symptoms was January 17, 2020. lp1 20:15 Onset of symptoms was January 17, 2020. lp1 Triage Assessment: 20:07 General: Appears in no apparent distress. comfortable, Behavior is calm, cooperative, aj1 appropriate for age. Pain: Complains of pain in back Pain currently is 10 out of 10 on a pain scale. Neuro: Level of Consciousness is awake, alert, obeys commands. Cardiovascular: Patient's skin is warm and dry. Respiratory: Airway is patent Respiratory effort is even, unlabored, Respiratory pattern is regular, symmetrical. Historical: - Allergies: 20:07 No Known Allergies; aj1 - Home Meds: 20:07 "Blood pressure medicine" [Active]; "cholesterol medicine" [Active]; Allergy Medicine aj1 oral oral [Active]; Vitamin D Oral [Active]; - PMHx: 20:07 Hypertension; Hyperlipidemia; aj1 - PSHx: 20:07 None; aj1 - Immunization history:: Flu vaccine is not up to date. - Social history:: Smoking status: Patient reports the use of cigarette tobacco products, smokes one-half pack cigarettes per day, Patient/guardian denies using alcohol, street drugs, The patient lives with family. - Family history:: not pertinent. Screenin:15 Abuse screen: Denies threats or abuse. Denies injuries from another. Nutritional lp1 screening: No deficits noted. Tuberculosis screening: No symptoms or risk factors identified. Fall Risk None identified. Assessment: 20:10 General: Appears in no apparent distress. Behavior is calm, cooperative, appropriate lp1 for age. Pain: Complains of pain in back, right arm and left arm. Neuro: No deficits noted. Cardiovascular: No deficits noted. Respiratory: No deficits noted. GI: No deficits noted. : No signs and/or symptoms were reported regarding the genitourinary system. EENT: No signs and/or symptoms were reported regarding the EENT system. Derm: Skin has skin tears on abrasions noted to posterior back, posterior bilateral arms; patient states itching Skin is dry, Skin is normal, Reports itching. Musculoskeletal: No deficits noted. Vital Signs: 20:04 BP 130 / 55; Pulse 84; Resp 16; Temp 98.5; Pulse Ox 100% on R/A; Weight 59.87 kg (R); aj1 Height 5 ft. 4 in. (162.56 cm); Pain 10/10; 20:04 Body Mass Index 22.66 (59.87 kg, 162.56 cm) aj1 ED Course: 19:48 Patient arrived in ED. jg7 20:06 Triage completed. aj1 20:07 Arm band placed on Patient placed in an exam room. aj1 20:09 Malinda Garcia MD is Attending Physician. ma2 20:15 Patient has correct armband on for positive identification. lp1 20:15 No provider procedures requiring assistance completed. Patient did not have IV access lp1 during this emergency room visit. 20:22 Chasidy Hale, ESTHER is Primary Nurse. lp1 Administered Medications: No medications were administered Outcome: 20:18 Discharge ordered by . ma2 20:30 Discharged to home ambulatory. lp1 20:30 Condition: good 20:30 Discharge instructions given to patient, Instructed on discharge instructions, follow up and referral plans. medication usage, wound care, Demonstrated understanding of instructions, follow-up care, medications, Prescriptions given X 4. 20:33 Patient left the ED. lp1 Signatures: Michelle Fall RN RN aj1 Chasidy Hale RN RN lp1 Malinda Garcia MD MD ma2 Griselda Funk7 Corrections: (The following items were deleted from the chart) 20:38 20:35 General: Appears in no apparent distress. Behavior is calm, cooperative, lp1 appropriate for age, lp1 20:38 20:35 Pain: Complains of pain in back, right arm and left arm lp1 lp1 20:38 20:35 Neuro: No deficits noted. lp1 lp1 20:38 20:35 Cardiovascular: No deficits noted. lp1 lp1 20:38 20:35 Respiratory: No deficits noted. lp1 lp1 20:38 20:35 GI: No deficits noted. lp1 lp1 20:38 20:35 : No signs and/or symptoms were reported regarding the genitourinary system. lp1lp1 20:38 20:35 EENT: No signs and/or symptoms were reported regarding the EENT system. lp1 lp1 20:38 20:35 Derm: Skin has skin tears on abrasions noted to posterior back, posterior lp1 bilateral arms; patient states itching Skin is dry, Skin is normal, Reports itching, lp1 20:38 20:35 Musculoskeletal: No deficits noted. lp1 lp1
--- NOTE | 2020-01-17 20:18 | EDPHYS ---
Physician Documentation [facility] Name: Katherin Bhakta Age: 59 yrs Sex: Female : 1960 Arrival Date: 01/17/2020 Time: 19:48 Bed 14 Private MD: ED Physician Malinda Garcia HPI: 01/16 20:16 This 59 yrs old Black Female presents to ER via Ambulatory with complaints of Rash. ma2 20:16 The patient's rash thought to be caused by Eczema. The rash is located on the body ma2 diffusely. Onset: The symptoms/episode began/occurred gradually, 1 year(s) ago. Associated signs and symptoms: Pertinent positives: Pertinent negatives: None. fever, nausea, swelling of lips, swelling of tongue. Severity of symptoms: At their worst the symptoms were mild in the emergency department the symptoms are unchanged. The patient has not experienced similar symptoms in the past. Historical: - Allergies: 20:07 No Known Allergies; aj1 - Home Meds: 20:07 "Blood pressure medicine" [Active]; "cholesterol medicine" [Active]; Allergy Medicine aj1 oral oral [Active]; Vitamin D Oral [Active]; - PMHx: 20:07 Hypertension; Hyperlipidemia; aj1 - PSHx: 20:07 None; aj1 - Immunization history:: Flu vaccine is not up to date. - Social history:: Smoking status: Patient reports the use of cigarette tobacco products, smokes one-half pack cigarettes per day, Patient/guardian denies using alcohol, street drugs, The patient lives with family. - Family history:: not pertinent. ROS: 20:16 Constitutional: Negative for fever, chills, and weight loss. ma2 20:16 All other systems are negative. Exam: 20:16 Constitutional: This is a well developed, well nourished patient who is awake, alert, ma2 and in no acute distress. Chest/axilla: Normal chest wall appearance and motion. Nontender with no deformity. No lesions are appreciated. Cardiovascular: Regular rate and rhythm with a normal S1 and S2. No gallops, murmurs, or rubs. Normal PMI, no JVD. No pulse deficits. Respiratory: Lungs have equal breath sounds bilaterally, clear to auscultation and percussion. No rales, rhonchi or wheezes noted. No increased work of breathing, no retractions or nasal flaring. Abdomen/GI: Soft, non-tender, with normal bowel sounds. No distension or tympany. No guarding or rebound. No evidence of tenderness throughout. Back: No spinal tenderness. No costovertebral tenderness. Full range of motion. Skin: Warm, dry with normal turgor. Normal color with no rashes, no lesions, and no evidence of cellulitis. MS/ Extremity: Pulses equal, no cyanosis. Neurovascular intact. Full, normal range of motion. Neuro: Awake and alert, GCS 15, oriented to person, place, time, and situation. Cranial nerves II-XII grossly intact. Motor strength 5/5 in all extremities. Sensory grossly intact. Cerebellar exam normal. Normal gait. 20:16 Skin: rash a moderate rash is noted. Vital Signs: 20:04 BP 130 / 55; Pulse 84; Resp 16; Temp 98.5; Pulse Ox 100% on R/A; Weight 59.87 kg (R); aj1 Height 5 ft. 4 in. (162.56 cm); Pain 10/10; 20:04 Body Mass Index 22.66 (59.87 kg, 162.56 cm) aj1 MDM: 20:10 Patient medically screened. ma2 20:17 Differential diagnosis: impetigo, allergic reaction, parasite infection, carcinoma. ma2 Data reviewed: vital signs, nurses notes. Counseling: I had a detailed discussion with the patient and/or guardian regarding: the historical points, exam findings, and any diagnostic results supporting the discharge/admit diagnosis, the presence of at least one elevated blood pressure reading (>120/80) during this emergency department visit, the need for outpatient follow up. Administered Medications: No medications were administered Disposition: 01/17/20 20:18 Discharged to Home. Impression: Rash and other nonspecific skin eruption. - Condition is Stable. - Discharge Instructions: Rash, [id number]. - Prescriptions for Bactroban 2 % Topical Ointment - Apply to affected area 1 application by TOPICAL route every 12 hours; 15 gram. Benadryl 25 mg Oral Capsule - take 1 capsule by ORAL route every 6 hours As needed; 30 tablet. Fluticasone 0.05 % Topical Cream - apply 1 application by TOPICAL route once daily; 1 tube. Nystatin- Triamcinolone 100,000-0.1 unit/g-% Topical Cream - apply 1 application by TOPICAL route 2 times per day; 1 tube. - Medication Reconciliation Form, Thank You Letter, Antibiotic Education, Prescription Opioid Use form. - Follow up: Private Physician; When: Tomorrow; Reason: Continuance of care. Signatures: Michelle Fall RN RN aj1 Chasidy Hale RN RN lp1 Malinda Garcia MD MD ma2 Corrections: (The following items were deleted from the chart) 20:33 20:18 01/17/2020 20:18 Discharged to Home. Impression: Rash and other nonspecific skin lp1 eruption. Condition is Stable. Forms are Medication Reconciliation Form, Thank You Letter, Antibiotic Education, Prescription Opioid Use. Follow up: Private Physician; When: Tomorrow; Reason: Continuance of care. ma2
[2020-01-17 20:39] VITALS: BP 130/55; TEMP 98.5; O2SAT 100
== END 2020-01-17 20:33 | disposition home or self-care (01) ==
LOC: ER 19:44
DX: R21 Rash and other nonspecific skin eruption (principal); I10 Essential (primary) hypertension; E78.5 Hyperlipidemia, unspecified; Z72.0 Tobacco use
CPT/HCPCS: 99282